=== PATIENT | female | born 1940 | race Caucasian/White ===

== ENCOUNTER 2017-04-22 11:41 | Emergency (ER) | payer MEDICARE, OTHER ==
[2017-04-22 12:00] VITALS: BP 157/75
[2017-04-22] MEDS ORDERED: Acetaminophen TAB* 325 MG PO ONE (12:33)
--- NOTE | 2017-04-22 12:35 | UC ---
Upper Extremity HPI - HPI Summary HPI Summary: 76 year old female with shoulder pain . Right shoulder and arm pain onset last night when boxer puppy pulled and twisted arm, now decreased ROM of upper arm. Pain with movement. No fall. no trauma. no numbness in arm. [ End ] - History of Current Complaint Chief Complaint: UCUpperExtremity Stated Complaint: RIGHT ARM/SHOULDER PAIN Time Seen by Provider: 04/22/17 12:13 Hx Obtained From: Patient ?: No Onset/Duration: Sudden Onset Severity Initially: Moderate Severity Currently: Moderate Location Of Pain: Is Diffuse Character: Stiffness Aggravating Factor(s): Movement Alleviating Factor(s): Nothing Associated Signs And Symptoms: Positive: Negative - Allergies/Home Medications Allergies/Adverse Reactions: Allergies Allergy/AdvReac Type Severity Reaction Status Date / Time Penicillins Allergy SEVERE Verified 04/22/17 12:00 BODY RASH Sulfa Drugs Allergy Nausea And Verified 04/22/17 12:00 Vomiting ENVIRONMENTAL/HAYFEVER Allergy Congestion, Uncoded 04/22/17 12:00 SNEEZING Home Medications: Home Medications Albuterol inh POWDER (NF) [Proair Respiclick] 2 puff IN QAM 04/22/17 [History Confirmed 04/22/17] PMH/Surg Hx/FS Hx/Imm Hx Previously Healthy: Yes - Surgical History Surgical History: Yes Surgery Procedure, Year, and Place: 1972 CYST REMOVED FROM RIGHT BREAST, [facility]. 1984 TOTAL HYSTERECTOMY, [facility]. 1987 POLYP REMOVED FROM COLON, [facility]. 1997 RIGHT EYE SURGERY, [place]. 1999 RIGHT KNEE TOTAL REPLACEMENT, [facility]. 2002 CATARACT EXTRACTION WITH IOL LENS IMPLANT RIGHT EYE, [facility]. 2004 TORN LEFT ROTATOR CUFF REPAIR AND PARTIAL REMOVAL OF COLLAR BONE, [facility] [place]. 2007 HIATAL HERNIA REPAIR, [facility] [place]. 2009 RIGHT FOOT SURGERY, [facility]. 06/2013 Left cataract surgery - Family History Known Family History: Positive: None - Social History Occupation: Retired Lives: With Family Alcohol Use: None Substance Use Type: None Smoking Status (MU): Never Smoked Tobacco - Immunization History Most Recent Influenza Vaccination: FEB 2013 Review of Systems Musculoskeletal: Arthralgia, Decreased ROM All Other Systems Reviewed And Are Negative: Yes Physical Exam Triage Information Reviewed: Yes Appearance: Well-Appearing, Well-Nourished, Pain Distress - mild Vital Signs: Initial Vital Signs Temp 98.1 F 04/22/17 11:47 Pulse 59 04/22/17 11:47 Resp 18 04/22/17 11:47 BP 157/75 04/22/17 11:47 Vital Signs Reviewed: Yes Respiratory Exam: Normal Cardiovascular Exam: Normal Musculoskeletal: Positive: ROM Limited @ - with flexion or extension of the righ shoulder joint. neck and c spine WNL and no sp tenderness. wrist and elbow exam normal . tenderness to palpation lateral shoulder Neurological Exam: Normal Diagnostics - Laboratory Diagnostic Studies Completed/Ordered: no fx. calcific tendonitis Upper Extremity Course/Dx - Course Course Of Treatment: ? rotator cuff tear -- sling and f/u ortho with dr pride - Differential Dx/Diagnosis Differential Diagnosis/HQI/PQRI: Contusion, Fracture (Closed), Strain, Sprain, Other - dislocation Provider Diagnoses: calcific tendonitis right arm Discharge - Discharge Plan Condition: Good Disposition: HOME Patient Education Materials: Calcific Tendinitis (ED) Referrals: Taiwo Pride MD [Medical Doctor] - 1 Day (Ortho referral ) Additional Instructions: Xray IMPRESSION: 1. SOFT TISSUE CALCIFICATIONS SUGGESTIVE OF A CALCIFIC TENDINOPATHY. 2. NO ACUTE OSSEOUS INJURY. IF SYMPTOMS PERSIST, RECOMMEND REPEAT IMAGING
--- NOTE | 2017-04-22 13:08 | RAD ---
HISTORY: Right shoulder pain COMPARISONS: None VIEWS: 4, Frontal internal rotation, external rotation, outlet, and axillary views of the right shoulder FINDINGS: BONE DENSITY: Normal. BONES: There is no displaced fracture. JOINTS: There is no arthropathy. ALIGNMENT: There is no dislocation. SOFT TISSUES: There is soft tissue calcification along the proximal right humerus. OTHER FINDINGS: None. IMPRESSION: 1. SOFT TISSUE CALCIFICATIONS SUGGESTIVE OF A CALCIFIC TENDINOPATHY. 2. NO ACUTE OSSEOUS INJURY. IF SYMPTOMS PERSIST, RECOMMEND REPEAT IMAGING
== END 2017-04-22 13:40 | disposition home or self-care (01) ==
LOC: UCCORT 11:41
DX: M65.221 Calcific tendinitis, right upper arm (principal); Z88.0 Allergy status to penicillin; Z88.2 Allergy status to sulfonamides
CPT/HCPCS: 99213; A9270-GY; G0463

== ENCOUNTER 2018-09-27 05:33 | Inpatient (IN) | payer MEDICARE, OTHER ==
--- NOTE | 2018-09-14 14:55 | HP ---
AMENDED REPORT NOW INCLUDES DESIGNATED COSIGNER SETUP HISTORY AND PHYSICAL: DATE OF ADMISSION/SURGERY: 09/27/18 DATE OF OFFICE VISIT: 09/14/18 SURGEON: Kartik Woods MD * (DICTATED BY CELSA CARTER) PROCEDURE: Left total knee replacement. CHIEF COMPLAINT: Left knee pain. HISTORY OF PRESENT ILLNESS: Margarita is a 77-year-old female presenting today for an H and P for her left total knee replacement on 09/27/18. She has had left knee pain for several months and has been having significant discomfort in the past few weeks. Her walking is less than 1 block. She has to use a cart at the grocery store for knee discomfort. She is able to use her steps, but with difficulty. She has to use a railing and goes up 1 step at a time. The left knee awakens her from sleep at night and when she gets into the car she has to lift her left pant leg up in order to get her left leg into the car because of knee discomfort. PAST MEDICAL HISTORY: Positive for asthma, seasonal allergies, hypertension, hyperlipidemia, osteoarthritis, colon cancer/colon polyps, and esophageal reflux. PAST SURGICAL HISTORY: She had a right inguinal hernia repair in 2017, right foot reconstruction in 2011, right knee replacement in 1999, rotator cuff repair in 2003, diaphragmatic hernia repair in 2006, right cataract removal in 2002, colon polypectomy in 1997, of the right breast in 1971, left cataract removal in 1997, total hysterectomy in 1985, and a right sinus removal in 2013. Hospitalizations were just for vaginal delivery. MEDICATIONS: Prior to visit, she is on: 1. Vitamin D 50,000 units once a week. 2. Nasonex 50 mcg 2 sprays in each nostril every day. 3. Diltiazem HCl ER 120 mg once daily. 4. Aspirin 81 mg once daily. 5. Advair Diskus 250/50 mcg 1 puff p.o. b.i.d. 6. Singulair 10 mg 1 p.o. daily. 7. Bisoprolol fumarate 5 mg 1 p.o. b.i.d. 8. Mometasone furoate 50 mcg 2 sprays in each nostril once a day. 9. ProAir HFA 108 mcg 2 puffs by mouth every 4 hours as needed. 10. Atorvastatin calcium 10 mg once a day. 11. Valsartan/hydrochlorothiazide 80/12.5 mg once a day. ALLERGIES: PENICILLIN, which results in a full body rash and SULFA ANTIBIOTICS , which results in nausea, vomiting. FAMILY HISTORY: Positive for mother had heart disease and was at 95. Father, history of heart disease. Brother was at 72 due to an unknown cancer. SOCIAL HISTORY: She is and lives with her . She is retired. She denies smoking or any tobacco use. Denies any recreational drug use and denies alcohol. Her daily caffeine is about 4 cups of regular coffee per day and she exercises sporadically. REVIEW OF SYSTEMS: General: She denies fevers, chills, fatigue. ENT: She denies headache, vision changes, or hearing loss. Cardiac: She denies chest pain, palpitations, NAVARRO, or history of an DE. Respiratory: She denies shortness of breath or cough. GI: She denies nausea, vomiting, diarrhea. Neuro: She denies numbness, tingling, or weakness. Heme: She denies any history of blood clots, DVT, PE. Also denies any anemia. She also denies a history of any reaction or allergy to metal implants. PHYSICAL EXAMINATION GENERAL: She is a 77-year-old female, in no acute distress. VITAL SIGNS: Height 63 inches, weight 153 pounds. Pulse is 78, BP is 142/78, respirations 14, temperature 97.9. Pain level 0 at rest. BMI is 27.1. LUNGS: Clear to auscultation bilaterally. HEART: She has normal rate and rhythm. No murmurs, rubs, or gallops. MUSCULOSKELETAL: Left lower extremity: She has marked anterior left knee tenderness to palpation. Her medial and lateral joint lines are also slightly tenderness to palpation. Her dorsalis pedis pulse and posterior tibialis pulses are brisk and 2+. She has decreased range of motion with 50 degrees of flexion and is unable to fully extend due to pain. The MCL and LCL are stable. She is able to heel raise and toe raise, but it increases her left knee pain. Her lower extremity skin is intact without redness or fluctuance. NEURO: She denies any numbness or tingling and she is A and O x3. DIAGNOSTIC STUDIES: Her left knee radiograph shows severe patellofemoral arthritis. IMPRESSION AND PLAN: She has left knee severe patellar arthritis and the patient is scheduled to undergo a left total knee replacement on 09/27/18. She will return to the office 10 to 14 days postop for followup and suture removal. Prescription for Percocet was prescribed to the patient's pharmacy for postop pain management. She will also be placed on full-dose aspirin and she is also going to her PCP tomorrow for general workup and is going to obtain an EKG. CELSA CARTER [id number]/[facility] #: [id number] GARY
[~2018-09-27 05:33] MED LIST: Buffered Lidocaine 1% SYRIN* 1 ML/SYRINGE INTRADERM ONE; Tranexamic Acid 1,000 MG in NS 0.9% 50 ML* (outpatient use) IV SCH
--- OUTSIDE RECORDS SUMMARY | 2018-09-27 05:39 | XMS REPORT | Continuity of Care Document ---
:1940 External Reference #:[id number] Author Name Gina Olivas Care Team Providers Name Role Phone Dimitri Raman MD Primary Care Physician Unavailable Payers Date Identification Numbers Payment Provider Subscriber Policy Number: [id number] Medicare Margarita Ewing Group Name: Medicare [address] PayID: [id number] [place] [address] Effective: 2014 Policy Number: Lifetime Benefit James Ewing [id number] Solution Group Name: [facility] [address] PayID: [facility] AMALIA Pérez [id number] Effective: 2002 Policy Number: [id number] Medicare Margarita Ewing Expires: 2018 Group Name: Medicare [address] PayID: [id number] [place] [address] Advance Directives Description No Information Available Problems Active Problems Provider Date Musculoskeletal disorder of the neck Dimitri Armas M.D. 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 Hyperlipidemia Onset: 03/20/2011 Family History Date Family Member(s) Observation Comments General Heart Disease General Hypertension General Cancer Father Heart Disease Mother Heart Disease Mother Hypertension First Brother Cancer Social History Type Date Description Comments Sex Unknown Marital Status Lives With Spouse Occupation Retired Tobacco Use Start: Unknown Never Smoked Cigarettes Tobacco Use Start: Unknown Never Smoked Cigars Tobacco Use Start: Unknown Never Smoked A Pipe Smokeless Tobacco Never Used Smokeless Tobacco ETOH Use Never used alcohol Tobacco Use Reviewed: 10/13/16 Patient has never smoked Recreational Drug Use Never Used Drugs Smoking Status Reviewed: 09/16/18 Patient has never smoked Exercise Type/Frequency Exercises sporadically Allergies, Adverse Reactions, Alerts Active Allergies Reaction Severity Comments Date Penicillin rash 01/23/2011 Medications Active Medications SIG Qnty Indications Ordering Date Provider Vitamin D 1 weekly 12caps E55.9 Dimitri 05/04/2017 (Ergocalciferol) MD Lamine 01951Pyyg Capsules Nasonex 2 spray each 51units Dimitri 11/04/2015 50mcg/Act nostril intranasal MD Lamine Suspension every day Diltiazem HCL ER 1 every day 90caps I10 Dimitri 05/08/2014 MD Lamine 120mg Caps ER 24HR Aspirin 1 qd Dimitri 06/18/2011 81mg Tablets MD CLARIBEL Raman Adv Diskus 1 puff po bid 1units Unknown 250-50mcg/Dose Aerosol Singulair 1 po qd 90tabs Unknown 10mg Tablets Bisoprolol Fumarate 1 po bid 60tabs Unknown 5mg Tablets Mometasone Furoate Rinard Two Sprays Unknown In Each Nostril 50mcg/Act Suspension Once Daily Proair HFA 2 puffs by mouth Unknown every 4 hours as 108(90Base) mcg/Act needed Aerosol Atorvastatin Calcium Take One Tablet By Unknown Mouth Every Day 10mg Tablets Valsartan-Hydrochlor Take One Tablet By Unknown othiazide Mouth Every Day 80-12.5mg Tablets History Medications Zithromax day number one 6tabs J06.9 [place] 03/04/2018 - 250mg two qd,thendays MD Lamine 04/20/2018 Tablets two thru five one pill every day Doxycycline Hyclate 1 by mouth twice 20caps A69.20 Dimitri 01/22/2017 - a day MD Lamine 04/15/2017 100mg Capsules Doxycycline Hyclate 1 by mouth twice 20caps A69.20 Dimitri 08/14/2016 - a day MD Lamine 10/13/2016 100mg Capsules Naprosyn one twice a day 60tabs M54.32 Dimitri 12/11/2015 - 500mg with food MD Lamine 03/13/2016 Tablets Prednisone day 1and day 2 9tabs R49.8 Dimitri 09/06/2015 - 20mg two tablets MD Lamine 03/13/2016 Tablets qd,then day3,4,5 one qd,the one half tabletday 6,7,8,9 [facility] Omeprazole 1 by mouth twice 180tabs R49.8 Dimitri 09/06/2015 - 20mg a day MD Lamine 09/06/2015 Tablets Budevanonide 2 puffs each 25.8units J30.1 Dimitri 06/25/2015 - nare q am MD Lamine 11/04/2015 32mcg/Act Suspension Azithromycin 2 now and 1 6tabs 465.9 [place] 04/04/2014 - 250mg daily x 4 days MD Lamine 04/11/2014 Tablets Albuterol Sulfate 1 application 25units J45.909 Dimitri 06/07/2013 - q4h prn MD Lamine 03/13/2016 (2.5mg/3ML) 0.083% Nebulizer Lipitor 1 by mouth every 90tabs E78.5 Dimitri 08/18/2012 - 10mg day MD Lamine 03/08/2015 Tablets Vitb12 1 qd [place] 01/23/2011 - 500mcg Licha Armas 04/20/2017 Aspir-81 1 po qd 100tabs Unknown - 81mg 04/19/2017 Tablets Furosemide po qam 30tabs Unknown - 40mg 04/19/2017 Tablets Diltiazem CD 1 qd 90caps 401.9 [place] - 120mg MD Lamine 05/08/2014 Caps ER 24HR Albuterol Sulfate 1 prn 493.90 Dimitri - MD Lamine 12/25/2011 (2.5mg/3ML) 0.083% Nebulizer Fluticasone 2 puffs each 3units J30.1 Dimitri - Propionate nare every in MD Lamine 06/25/2015 the morning 50mcg/Act Suspension Meclizine HCL Unknown - 25mg 06/18/2011 Tablets Triamcinolone Dimitri Ghosh, - Acetonide 12/25/2011 0.5% Ointment Clotrimazole/Betame Dimitri - erica Raman MD 06/18/2011 Dipropionate 1-0.05% Cream Fluzone High-Dose Adm 0.5ML Im Utd Unknown - 03/13/2016 0.5ml Guerda Medications Administered in Office Medication SIG Qnty Indications Ordering Provider Date Depomedrol 40MG Kartik Woods M.D. 08/22/2018 Injection Celestone 3 mg and 3mg Taiwo Pride MD 04/23/2017 Injection Inj, Regadenoson, 0.1 MG Mallorie Duckworth M.D. 08/11/2012 Injection Technetium TC 99M Tetrofosmin, Mallorie Duckworth M.D. 08/11/2012 Per Unit Dose Up To 40 Millicuries Injection Allergy Injection - Single Dimitri Raman MD 10/21/1992 Injection Allergy Injection - Single Dimitri Raman MD 09/23/1992 Injection Allergy Injection - Single Dimitri Raman MD 09/02/1992 Injection Allergy Injection - Single Unknown 08/12/1992 Injection Allergy Injection - Single Unknown 07/22/1992 Injection Allergy Injection - Single Dimitri Raman MD 07/01/1992 Injection Immunizations CPT Code Status Date Vaccine Lot # [id number] Given 10/13/2016 Pneumococcal Conjugate Vaccine 13 Valent For Intramuscular Use 89549 Given 02/20/2016 Fluzone High Dose 41227 Given 02/15/2015 Fluzone High Dose 37689 Given 02/07/2014 Influenza Virus 3Yrs & Over 80694 Given 06/07/2013 Zoster (Zostavax) 99286 Given 02/08/2013 Influenza Virus 3Yrs & Over 57852 Given 08/18/2012 Pneumonia Vaccine 01908 Given 08/18/2012 Tdap - Tetanus/Diptheria/Acellular Pertussis 58325 Given 01/28/2012 Influenza Virus 3Yrs & Over 49884 Given 03/02/2008 Influenza Virus 3Yrs & Over 53698 Given 06/10/2006 Pneumonia Vaccine 73216 Given 03/11/2006 Influenza Virus 3Yrs & Over 76468 Given 04/02/2005 Pneumonia Vaccine 34528 Given 02/13/2005 Tetanus And Diptheria (Td) For Adult Use Preservative Free 48096 Given 12/02/1999 Tetanus And Diptheria (Td) For Adult Use Preservative Free 28261 Given 04/14/1996 Flu Vaccine Vital Signs Date Vital Result Comment 09/16/2018 8:27am Height 63 inches 5'3" Weight 154.00 lb Heart Rate 63 /min BP Systolic 114 mmHg BP Diastolic 70 mmHg Respiratory Rate 20 /min Pain Level 0 O2 % BldC Oximetry 97 % BMI (Body Mass Index) 27.3 kg/m2 09/14/2018 9:08am Height 63 inches 5'3" Weight 153.00 lb Heart Rate 78 /min BP Systolic 142 mmHg BP Diastolic 78 mmHg Respiratory Rate 14 /min Body Temperature 97.9 F Pain Level 0 BMI (Body Mass Index) 27.1 kg/m2 08/22/2018 8:26am Height 63 inches 5'3" Weight 150.00 lb Heart Rate 67 /min BP Systolic 148 mmHg BP Diastolic 96 mmHg Body Temperature 96.4 F BMI (Body Mass Index) 26.6 kg/m2 04/20/2018 10:51am Weight 150.00 lb BP Systolic 120 mmHg BP Diastolic 82 mmHg 03/04/2018 9:12am Weight 151.00 lb Heart Rate 69 /min BP Systolic 140 mmHg BP Diastolic 80 mmHg 10/28/2017 3:13pm Weight 153.00 lb BP Systolic 120 mmHg BP Diastolic 62 mmHg 10/14/2017 9:07am Height 60.25 inches Weight 152.00 lb Heart Rate 60 /min BP Systolic 150 mmHg BP Diastolic 90 mmHg Respiratory Rate 20 /min BMI (Body Mass Index) 29.4 kg/m2 08/11/2017 8:43am Height 60.75 inches Weight 157.50 lb BP Systolic 100 mmHg BP Diastolic 68 mmHg BMI (Body Mass Index) 30.0 kg/m2 05/04/2017 1:48pm Weight 160.00 lb BP Systolic 120 mmHg BP Diastolic 68 mmHg 04/23/2017 9:08am Height 60.75 inches Weight 159.00 lb BP Systolic 142 mmHg BP Diastolic 82 mmHg BMI (Body Mass Index) 30.3 kg/m2 04/23/2017 11:26am Height 62 inches 5'2" Weight 159.00 lb Heart Rate 60 /min BP Systolic Sitting 150 mmHg BP Diastolic Sitting 86 mmHg Respiratory Rate 18 /min Pain Level 0 BMI (Body Mass Index) 29.1 kg/m2 04/15/2017 8:12am Weight 161.50 lb BP Systolic 142 mmHg BP Diastolic 88 mmHg 10/13/2016 8:08am Height 60.75 inches Weight 168.00 lb Heart Rate 64 /min BP Systolic 122 mmHg BP Diastolic 66 mmHg Respiratory Rate 16 /min BMI (Body Mass Index) 32.0 kg/m2 08/14/2016 12:15pm BP Systolic 130 mmHg BP Diastolic 88 mmHg 06/16/2016 8:08am Weight 178.00 lb BP Systolic 128 mmHg BP Diastolic 78 mmHg 03/13/2016 8:09am Weight 178.50 lb BP Systolic 134 mmHg BP Diastolic 80 mmHg 01/02/2016 8:04am Weight 174.50 lb BP Systolic 144 mmHg BP Diastolic 78 mmHg 12/11/2015 8:08am Weight 175.00 lb BP Systolic 144 mmHg BP Diastolic 84 mmHg 09/12/2015 9:13am Height 60.75 inches Weight 177.00 lb Heart Rate 56 /min BP Systolic 126 mmHg BP Diastolic 86 mmHg Respiratory Rate 16 /min Body Temperature 97.7 F BMI (Body Mass Index) 33.7 kg/m2 09/06/2015 9:56am Weight 175.00 lb BP Systolic 128 mmHg BP Diastolic 80 mmHg 09/06/2015 11:17am Heart Rate 70 /min Body Temperature 98.8 F 06/25/2015 8:19am Weight 177.00 lb BP Systolic 130 mmHg BP Diastolic 74 mmHg 03/14/2015 8:12am Weight 177.50 lb BP Systolic 150 mmHg BP Diastolic 100 mmHg 03/08/2015 8:09am Weight 176.00 lb BP Systolic 126 mmHg BP Diastolic 74 mmHg 09/06/2014 9:15am Height 60.75 inches Weight 184.50 lb Heart Rate 72 /min BP Systolic 136 mmHg BP Diastolic 72 mmHg Respiratory Rate 16 /min Body Temperature 98.2 F BMI (Body Mass Index) 35.1 kg/m2 07/13/2014 8:02am Weight 189.00 lb BP Systolic 140 mmHg BP Diastolic 80 mmHg 04/11/2014 10:19am Weight 191.00 lb BP Systolic 132 mmHg BP Diastolic 84 mmHg 04/04/2014 10:05am Weight 188.50 lb BP Systolic 124 mmHg BP Diastolic 82 mmHg Body Temperature 98.5 F 02/26/2014 9:55am Weight 188.50 lb BP Systolic 110 mmHg BP Diastolic 66 mmHg 11/24/2013 12:07pm Height 61 inches Weight 185.00 lb Heart Rate 56 /min BP Systolic 136 mmHg BP Diastolic 72 mmHg Respiratory Rate 16 /min Body Temperature 98.5 F BMI (Body Mass Index) 35.0 kg/m2 09/27/2013 8:24am Weight 192.50 lb BP Systolic 134 mmHg BP Diastolic 72 mmHg 08/10/2013 2:57pm Height 61 inches Weight 186.00 lb Heart Rate 64 /min BP Systolic 120 mmHg BP Diastolic 80 mmHg Respiratory Rate 14 /min Body Temperature 98.8 F BMI (Body Mass Index) 35.1 kg/m2 06/07/2013 1:03pm Height 60.75 inches Weight 186.00 lb Heart Rate 64 /min BP Systolic 98 mmHg BP Diastolic 70 mmHg Respiratory Rate 16 /min Body Temperature 98.1 F BMI (Body Mass Index) 35.4 kg/m2 11/25/2012 8:15am Height 61 inches Weight 190.00 lb BP Systolic 136 mmHg BP Diastolic 88 mmHg BMI (Body Mass Index) 35.9 kg/m2 08/18/2012 8:13am Weight 202.00 lb BP Systolic 138 mmHg BP Diastolic 90 mmHg 07/28/2012 9:21am Height 60.50 inches Weight 203.00 lb BMI (Body Mass Index) 39.0 kg/m2 02/25/2012 9:52am BP Systolic 130 mmHg BP Diastolic 72 mmHg 12/25/2011 8:24am Height 60.50 inches Weight 192.50 lb BP Systolic 136 mmHg BP Diastolic 86 mmHg BMI (Body Mass Index) 37.0 kg/m2 06/18/2011 8:34am Height 60.50 inches Weight 192.50 lb Heart Rate 60 /min BP Systolic 140 mmHg BP Diastolic 86 mmHg Respiratory Rate 14 /min Body Temperature 97.6 F BMI (Body Mass Index) 37.0 kg/m2 01/23/2011 9:24am Heart Rate 84 /min BP Systolic Sitting 128 mmHg BP Diastolic Sitting 88 mmHg Results Test Date Facility Test Result H/L Range Note CBC Auto Diff 09/14/2018 White Blood 5.8 10^3/uL N 3.5-10.[address] [place] [address] [phone] Red Blood Count 4.12 10^6/uL N 3.70-4.87 Hemoglobin 12.6 g/dL N 12.0-16.0 Hematocrit 39 % N 35-47 Mean Corpuscular Volume 94 fL N 80-97 Mean Corpuscular Hemoglobin 31 pg N 27-31 Mean Corpuscular HGB Conc 33 g/dL N 31-36 Red Cell Distribution Width 15 % N 10.5-15 Platelet Count 192 10^3/uL N 150-450 Mean Platelet Volume 8.0 fL N 7.4-10.4 Abs Neutrophils 3.4 10^3/uL N 1.5-7.7 Abs Lymphocytes 1.4 10^3/uL N 1.0-4.8 Abs Monocytes 0.4 10^3/uL N 0-0.8 Abs Eosinophils 0.5 10^3/uL N 0-0.6 Abs Basophils 0 10^3/uL N 0-0.2 Abs Nucleated RBC 0 10^3/uL Granulocyte % 58.5 % Lymphocyte % 24.1 % Monocyte % 7.4 % Eosinophil % 9.3 % Basophil % 0.7 % Nucleated Red Blood Cells % 0 Inr/Protime 09/14/2018 Inr 0.97 N 0.82-1.[address] [place] [address] [phone] Laboratory test 09/14/2018 Partial 30.7 seconds N 26.0-36.[address] [place] [address] PTT [phone] Comp Metabolic 09/14/2018 Sodium 140 mmol/L N 135- [address] [place] [address] [phone] Potassium 4.0 mmol/L N 3.5-5.0 Chloride 104 mmol/L N 101-111 Co2 Carbon Dioxide 28 mmol/L N 22-32 Anion Gap 8 mmol/L N 2-11 Glucose 98 mg/dL N 70-100 Blood Urea Nitrogen 27 mg/dL High 6-24 Creatinine 0.82 mg/dL N 0.51-0.95 BUN/Creatinine Ratio 32.9 High 8-20 Calcium 9.4 mg/dL N 8.6-10.3 Total Protein 6.7 g/dL N 6.4-8.9 Albumin 4.0 g/dL N 3.2-5.2 Globulin 2.7 g/dL N 2-4 Albumin/Globulin Ratio 1.5 N 1-3 Total Bilirubin 0.50 mg/dL N 0.2-1.0 Alkaline Phosphatase 56 U/L N 34-104 Alt 8 U/L N 7-52 Ast 15 U/L N 13-39 Egfr Non- 67.4 >60 Egfr 81.6 >60 4 Type & Screen 09/14/2018 Patient Blood Type O Positive [address] [place] [address] [phone] Antibody Screen NEGATIVE CBC 10/23/2017 N2N/CCD Import Hematocrit 40.5 % 36-46.1 5 Hemoglobin 12.9 gm/dL 11.6-15.8 Mean Cell Volume 96.7 fl 80.9-99 Mean Corpuscular HGB 30.8 pg 25.9-32.7 Mean Corpuscular HGB Conc 31.9 g/dL 30.8-34.3 Mean Platelet Volume 10.0 fL 8.9-12.4 Platelet Count 182 K/uL 155-360 Red Blood Count 4.19 M/uL 3.9-5.4 Red Cell Distri Width %CV 14.7 % High 11.7-14.4 White Blood Count 6.5 K/uL 3.1-10.7 Comprehensive Metabolic Panel 10/21/2017 N2N/CCD Import Alb/Glob 0.9 ratio 6 Albumin 3.4 g/dL 3.4-5 Alkaline Phosphatase 48 U/L 45-117 Anion Gap 8 mEq/L 8-16 BUN 20 mg/dL High 7-18 BUN/Creat 25.0 ratio Bilirubin,Total 0.5 mg/dL 0.2-1 Calcium 8.8 mg/dL 8.5-10.1 Carbon Dioxide 25 mmol/L 21-32 Chloride 108 mmol/L High 98-107 Creatinine 0.8 mg/dL 0.6-1.3 Globulin 3.7 g/dL 1.9-4.3 Glom Filtration Rate, Estimate >60 mL/min Glucose 80 mg/dL 74-106 If >60 mL/min 7 Potassium 4.0 mmol/L 3.5-5.1 SGPT/Alt 16 U/L 12-78 Sgot/Ast 23 U/L 15-37 Sodium 141 mmol/L 136-145 Total Protein 7.1 g/dL 6.4-8.2 LDL Cholesterol Profile 10/21/2017 N2N/[facility] Import Cholesterol 157 mg/dL 8 HDL Cholesterol 92 mg/dL 9 LDL-Cholesterol 57 mg/dL 10 Triglycerides 42 mg/dL 11 Microalbumin,Random 10/21/2017 N2N/[facility] Import Microalbumin,Urine 8.1 mg/L Urine Vitamin B12 And Folate 04/27/2017 N2N/[facility] Import Folic Acid 8.7 ng/mL 3.1-1 12 Serum 7.5 Vitamin B12 345 pg/mL 193-986 Laboratory test 04/27/2017 N2N/CCD Import Glycohemoglobin (A1c) 6.0 % 4.2-6.3 13 finding Thyroid Stim Hormone 3.48 uIU/mL 0.3-4.2 Vitamin D,25-Hydroxy 26.5 ng/mL Low 30-100 14 eAG 126 mg/dL CBC No Diff 04/27/2017 N2N/[facility] Import Hematocrit 40.9 % 36-46.1 Hemoglobin 13.1 gm/dL 11.6-15.8 Mean Cell Volume 96.5 fl 80.9-99 Mean Corpuscular HGB 30.9 pg 25.9-32.7 Mean Corpuscular HGB Conc 32.0 g/dL 30.8-34.3 Mean Platelet Volume 10.0 fL 8.9-12.4 Platelet Count 212 K/uL 155-360 Red Blood Count 4.24 M/uL 3.9-5.4 Red Cell Distri Width %CV 14.9 % High 11.7-14.4 White Blood Count 6.4 K/uL 3.1-10.7 CMP 04/27/2017 N2N/CCD Import Alb/Glob 0.9 ratio Albumin 3.3 g/dL Low 3.4-5 Alkaline Phosphatase 50 U/L 45-117 Anion Gap 6 mEq/L Low 8-16 BUN 30 mg/dL High 7-18 BUN/Creat 33.3 ratio Bilirubin,Total 0.5 mg/dL 0.2-1 Calcium 9.0 mg/dL 8.5-10.1 Carbon Dioxide 30 mmol/L 21-32 Chloride 106 mmol/L 98-107 Creatinine 0.9 mg/dL 0.6-1.3 Globulin 3.7 g/dL 1.9-4.3 Glom Filtration Rate, Estimate >60 mL/min Glucose 81 mg/dL 74-106 If >60 mL/min 15 Potassium 4.6 mmol/L 3.5-5.1 SGPT/Alt 24 U/L 12-78 Sgot/Ast 21 U/L 15-37 Sodium 142 mmol/L 136-145 Total Protein 7.0 g/dL 6.4-8.2 Microalbumin,Random Urine 04/27/2017 N2N/CCD Import Microalbumin,Urine 8.1 mg/L Lipid Panel 04/27/2017 N2N/CCD Import Cholesterol 177 mg/dL 16 HDL Cholesterol 100 mg/dL 17 LDL-Cholesterol 56 mg/dL 18 Triglycerides 103 mg/dL 19 Laboratory test 10/07/2016 N2N/CCD Import Lyme IgM 2.24 index High 0- 0.79 20, 21 finding (Reflex Western Blot) Basic Metabolic 10/07/2016 N2N/CCD Import Anion Gap 5 mEq/L Low 8-16 Panel BUN 28 mg/dL High 7-18 BUN/Creat 31.1 ratio Calcium 9.1 mg/dL 8.5-10.1 Carbon Dioxide 30 mmol/L 21-32 Chloride 107 mmol/L 98-107 Creatinine 0.9 mg/dL 0.6-1.3 Glom Filtration Rate, Estimate >60 mL/min Glucose 93 mg/dL 74-106 If >60 mL/min 22 Potassium 4.0 mmol/L 3.5-5.1 Sodium 142 mmol/L 136-145 LDL Cholesterol Profile 10/07/2016 N2N/CCD Import Cholesterol 169 mg/dL 23 HDL Cholesterol 92 mg/dL 24 LDL-Cholesterol 67 mg/dL 25 Triglycerides 50 mg/dL 26 Lyme Igg & Igm By Western 10/07/2016 N2N/CCD Import Lyme AB Igg By Western . Blot Blot Lyme AB Igm By Western Blot . Lyme Igg WB Interpretation Negative 27 Lyme Igm WB Interpretation Positive Abnormal 28 P18 AB Absent P23 AB Present Abnormal P23 AB Absent P28 AB Absent P30 AB Absent P39 AB Absent P39 AB Absent P41 AB Present Abnormal P41 AB Absent P45 AB Absent P58 AB Absent P66 AB Absent P93 AB Absent Microalbumin,Random 10/07/2016 N2N/CCD Import Microalbumin,Urine < 5.0 Urine mg/L Laboratory test 08/17/2016 N2N/CCD Import Lyme IgM (Reflex 2.52 High 0-0 29, finding Western Blot) index .79 30 Lyme Igg & Igm By 08/17/2016 N2N/[facility] Import Lyme AB Igg By . Western Blot Western Blot Lyme AB Igm By Western Blot . Lyme Igg WB Interpretation Negative 31 Lyme Igm WB Interpretation Negative 32 P18 AB Absent P23 AB Absent P23 AB Present Abnormal P28 AB Absent P30 AB Absent P39 AB Absent P39 AB Absent P41 AB Absent P41 AB Absent P45 AB Absent P58 AB Absent P66 AB Absent P93 AB Absent Laboratory test 12/04/2015 N2N/CCD Import Microalbumin,Random Urine 9.7 mg/ L finding CBC 12/04/2015 N2N/[facility] Import Hematocrit 40.6 % 36-46. 1 Hemoglobin 13.0 gm/dL 11.6-15.8 Mean Cell Volume 95.1 fl 80.9-99 Mean Corpuscular HGB 30.4 pg 25.9-32.7 Mean Corpuscular HGB Conc 32.0 g/dL 30.8-34.3 Mean Platelet Volume 9.9 fL 8.9-12.4 Platelet Count 214 K/uL 155-360 Red Blood Count 4.27 M/uL 3.9-5.4 Red Cell Distri Width %CV 14.6 % High 11.7-14.4 White Blood Count 5.2 K/uL 3.1-10.7 Comprehensive Metabolic Panel 12/04/2015 N2N/[facility] Import Alb/Glob 1.0 ratio Albumin 3.7 g/dL 3.4-5 Alkaline Phosphatase 53 U/L 45-117 Anion Gap 6 mEq/L Low 8-16 BUN 30 mg/dL High 7-18 BUN/Creat 33.3 ratio Bilirubin,Total 0.7 mg/dL 0.2-1 Calcium 9.2 mg/dL 8.5-10.1 Carbon Dioxide 29 mmol/L 21-32 Chloride 106 mmol/L 98-107 Creatinine 0.9 mg/dL 0.6-1.3 Globulin 3.7 g/dL 1.9-4.3 Glom Filtration Rate, Estimate >60 mL/min Glucose 96 mg/dL 74-106 If >60 mL/min 33 Potassium 4.0 mmol/L 3.5-5.1 SGPT/Alt 17 U/L 12-78 Sgot/Ast 20 U/L 15-37 Sodium 141 mmol/L 136-145 Total Protein 7.4 g/dL 6.4-8.2 LDL Cholesterol Profile 12/04/2015 N2N/CCD Import Cholesterol 174 mg/dL 34 HDL Cholesterol 88 mg/dL 35 LDL-Cholesterol 76 mg/dL 36 Triglycerides 51 mg/dL 37 LDL Cholesterol Profile 09/05/2015 N2N/CCD Import Cholesterol 184 mg/dL 38 HDL Cholesterol 100 mg/dL 39 LDL-Cholesterol 73 mg/dL 40 Triglycerides 54 mg/dL 41 Basic Metabolic Panel 05/29/2015 N2N/CCD Import Anion Gap 7 mEq/L Low 8- 16 BUN 27 mg/dL High 7-18 BUN/Creat 33.7 ratio Calcium 8.7 mg/dL 8.5-10.1 Carbon Dioxide 28 mmol/L 21-32 Chloride 106 mmol/L 98-107 Creatinine 0.8 mg/dL 0.6-1.3 Glom Filtration Rate, Estimate >60 mL/min Glucose 88 mg/dL 74-106 If >60 mL/min 42 Potassium 3.5 mmol/L 3.5-5.1 Sodium 141 mmol/L 136-145 LDL Cholesterol Profile 05/29/2015 N2N/CCD Import Cholesterol 228 mg/dL High 43 HDL Cholesterol 89 mg/dL 44 LDL-Cholesterol 126 mg/dL 45 Triglycerides 64 mg/dL 46 Laboratory test 03/01/2015 N2N/CCD Import Microalbumin,Random Urine 298.0 mg/L finding CBC 03/01/2015 N2N/CCD Import Hematocrit 37.7 % 36-46 .1 Hemoglobin 12.4 gm/dL 11.6-15.8 Mean Cell Volume 96.7 fl 80.9-99 Mean Corpuscular HGB 31.8 pg 25.9-32.7 Mean Corpuscular HGB Conc 32.9 g/dL 30.8-34.3 Mean Platelet Volume 10.2 fL 8.9-12.4 Platelet Count 187 K/uL 155-360 Red Blood Count 3.90 M/uL 3.9-5.4 Red Cell Distri Width %CV 14.9 % High 11.7-14.4 White Blood Count 8.1 K/uL 3.1-10.7 Comprehensive Metabolic Panel 03/01/2015 N2N/CCD Import Alb/Glob 1.0 ratio Albumin 3.4 g/dL 3.4-5 Alkaline Phosphatase 66 U/L 45-117 Anion Gap 4 mEq/L Low 8-16 BUN 15 mg/dL 7-18 BUN/Creat 15.0 ratio Bilirubin,Total 0.7 mg/dL 0.2-1 Calcium 8.9 mg/dL 8.5-10.1 Carbon Dioxide 32 mmol/L 21-32 Chloride 107 mmol/L 98-107 Creatinine 1.0 mg/dL 0.6-1.3 Globulin 3.4 g/dL 1.9-4.3 Glom Filtration Rate, Estimate 57 mL/min Glucose 96 mg/dL 74-106 If >60 mL/min 47 Potassium 3.7 mmol/L 3.5-5.1 SGPT/Alt 15 U/L 12-78 Sgot/Ast 15 U/L 15-37 Sodium 143 mmol/L 136-145 Total Protein 6.8 g/dL 6.4-8.2 LDL Cholesterol Profile 03/01/2015 N2N/CCD Import Cholesterol 158 mg/dL 48 HDL Cholesterol 88 mg/dL 49 LDL-Cholesterol 57 mg/dL 50 Triglycerides 65 mg/dL 51 Comprehensive Metabolic Panel 05/25/2014 N2N/CCD Import Alb/Glob 1.0 ratio Albumin 3.5 g/dL 3.4-5 Alkaline Phosphatase 68 U/L 45-117 Anion Gap 8 mEq/L 8-16 BUN 27 mg/dL High 7-18 BUN/Creat 27.0 ratio Bilirubin,Total 0.6 mg/dL 0.2-1 Calcium 8.9 mg/dL 8.5-10.1 Carbon Dioxide 30 mmol/L 21-32 Chloride 108 mmol/L High 98-107 Creatinine 1.0 mg/dL 0.6-1.3 Globulin 3.6 g/dL 1.9-4.3 Glom Filtration Rate, Estimate 58 mL/min Glucose 83 mg/dL 74-106 If >60 mL/min 52 Potassium 3.9 mmol/L 3.5-5.1 SGPT/Alt 14 U/L 12-78 Sgot/Ast 16 U/L 15-37 Sodium 142 mmol/L 136-145 Total Protein 7.1 g/dL 6.4-8.2 LDL Cholesterol Profile 05/25/2014 N2N/CCD Import Cholesterol 171 mg/dL 53 HDL Cholesterol 101 mg/dL 54 LDL-Cholesterol 58 mg/dL 55 Triglycerides 59 mg/dL 56 Imaging finding 2013 N2N/CCD Import Chest Xray PA <pending> and Lateral Laboratory test 2013 N2N/CCD Import Thyroid Stim 4.55 uIU/mL 0.49- 4.6 finding Hormone 7 CBS W/Automated 2013 N2N/CCD Import Bas% 0.4 % 0-1.1 Diff Baso # 0.02 K/uL 0-0.1 Eo% 16.5 % High 0-6.6 Eos # 0.83 K/uL High 0-0.5 Hematocrit 38.5 % 36-46.1 Hemoglobin 12.7 gm/dL 11.6-15.8 Lymph # 1.51 K/uL 0.8-3.4 Lymph % 30.0 % 17-46.1 Mean Cell Volume 94.1 fl 80.9-99 Mean Corpuscular HGB 31.1 pg 25.9-32.7 Mean Corpuscular HGB Conc 33.0 g/dL 30.8-34.3 Mean Platelet Volume 9.6 fL 8.9-12.4 Allen # 0.44 K/uL 0.3-0.9 Allen % 8.7 % 4.3-13.2 Neut# 2.24 K/uL 1-7 Neut% 44.4 % 40.4-72.8 Platelet Count 189 K/uL 155-360 Red Blood Count 4.09 M/uL 3.9-5.4 Red Cell Distri Width %CV 13.8 % 11.7-14.4 Red Cell Distri Width SD 46.4 fl 3-47 White Blood Count 5.0 K/uL 3.1-10.7 LDL Cholesterol Profile 2013 N2N/CCD Import Cholesterol 154 mg/dL 120-200 HDL Cholesterol 86 mg/dL High 29-83 LDL-Cholesterol 58 mg/dL Low 62-185 Triglycerides 49 mg/dL 16-231 Comprehensive Metabolic Panel 2013 N2N/CCD Import Alb/Glob 0.8 ratio Albumin 3.2 g/dL Low 3.5-5 Alkaline Phosphatase 64 U/L 50-136 Anion Gap 10 mEq/L 8-16 BUN 20 mg/dL 5-23 BUN/Creat 22.2 ratio Bilirubin,Total 0.5 mg/dL 0.2-1.2 Calcium 8.9 mg/dL 8.5-10.1 Carbon Dioxide 28 mEq/L 18-29 Chloride 108 mmol/L High 98-107 Creatinine 0.9 mg/dL 0.5-1.4 Globulin 3.9 g/dL 1.9-4.3 Glom Filtration Rate, Estimate >60 mL/min Glucose 82 mg/dL 76-115 If >60 mL/min 57 Potassium 4.1 mmol/L 3.5-5.1 SGPT/Alt 14 U/L Low 30-65 Sgot/Ast 16 U/L 16-40 Sodium 142 mmol/L 136-145 Total Protein 7.1 g/dL 6.3-8 Laboratory test 09/20/2013 N2N/CCD Import Microalbumin,Random 20.8 High 0 -18.5 finding Urine mg/L LDL Cholesterol 09/20/2013 N2N/CCD Import Cholesterol 181 120-200 Profile mg/dL HDL Cholesterol 102 mg/dL High 29-83 LDL-Cholesterol 70 mg/dL 62-185 Triglycerides 46 mg/dL 16-231 Comprehensive Metabolic Panel 09/20/2013 N2N/CCD Import Alb/Glob 0.9 ratio Albumin 3.6 g/dL 3.5-5 Alkaline Phosphatase 71 U/L 50-136 Anion Gap 7 mEq/L Low 8-16 BUN 20 mg/dL 5-23 BUN/Creat 22.2 ratio Bilirubin,Total 0.6 mg/dL 0.2-1.2 Calcium 9.2 mg/dL 8.5-10.1 Carbon Dioxide 31 mEq/L High 18-29 Chloride 107 mmol/L 98-107 Creatinine 0.9 mg/dL 0.5-1.4 Globulin 4.0 g/dL 1.9-4.3 Glom Filtration Rate, Estimate >60 mL/min Glucose 92 mg/dL 76-115 If >60 mL/min 58 Potassium 4.2 mmol/L 3.5-5.1 SGPT/Alt 13 U/L Low 30-65 Sgot/Ast 14 U/L Low 16-40 Sodium 141 mmol/L 136-145 Total Protein 7.6 g/dL 6.3-8 Imaging finding 09/14/2013 N2N/CCD Import bilateral <pending> screening mammogram LDL Cholesterol 06/15/2013 N2N/[facility] Import Cholesterol 160 mg/dL 120-200 Profile HDL Cholesterol 91 mg/dL High 29-83 LDL-Cholesterol 58 mg/dL Low 62-185 Triglycerides 54 mg/dL 16-231 Laboratory test 06/15/2013 N2N/[facility] Import Thyroid Stim 2.39 uIU/mL 0.49- 4.67 finding Hormone CBC 06/15/2013 [facility]N/[facility] Import Hematocrit 40.6 % 36-46.1 Hemoglobin 13.1 gm/dL 11.6-15.8 Mean Cell Volume 93.8 fl 80.9-99 Mean Corpuscular HGB 30.3 pg 25.9-32.7 Mean Corpuscular HGB Conc 32.3 g/dL 30.8-34.3 Mean Platelet Volume 9.0 fL 8.9-12.4 Platelet Count 204 K/uL 155-360 Red Blood Count 4.33 M/uL 3.9-5.4 Red Cell Distri Width %CV 14.0 % 11.7-14.4 White Blood Count 6.6 K/uL 3.1-10.7 Comprehensive Metabolic Panel 06/15/2013 [facility] Import Alb/Glob 0.9 ratio Albumin 3.4 g/dL Low 3.5-5 Alkaline Phosphatase 73 U/L 50-136 Anion Gap 11 mEq/L 8-16 BUN 19 mg/dL 5-23 BUN/Creat 21.1 ratio Bilirubin,Total 0.7 mg/dL 0.2-1.2 Calcium 8.9 mg/dL 8.5-10.1 Carbon Dioxide 29 mEq/L 18-29 Chloride 106 mmol/L 98-107 Creatinine 0.9 mg/dL 0.5-1.4 Globulin 3.8 g/dL 1.9-4.3 Glom Filtration Rate, Estimate >60 mL/min Glucose 90 mg/dL 76-115 If >60 mL/min 59 Potassium 3.8 mmol/L 3.5-5.1 SGPT/Alt 14 U/L Low 30-65 Sgot/Ast 16 U/L 16-40 Sodium 142 mmol/L 136-145 Total Protein 7.2 g/dL 6.3-8 LDL Cholesterol Profile 02/17/2013 N[facility] Import Cholesterol 176 mg/dL 120-200 HDL Cholesterol 94 mg/dL High 83 LDL-Cholesterol 72 mg/dL 62-185 Triglycerides 52 mg/dL 16-231 Laboratory test 08/19/2012 [facility] Import Microalbumin,Random 20.9 mg/L High 0-18.5 finding Urine Comprehensive 08/19/2012 [facility] Import Alb/Glob 1.0 ratio Metabolic Panel Albumin 3.7 g/dL 3.5-5 Alkaline Phosphatase 67 U/L 50-136 Anion Gap 12 mEq/L 8-16 BUN 21 mg/dL 5-23 BUN/Creat 21.0 ratio Bilirubin,Total 0.6 mg/dL 0.2-1.2 Calcium 9.4 mg/dL 8.5-10.1 Carbon Dioxide 29 mEq/L 18-29 Chloride 106 mmol/L 98-107 Creatinine 1.0 mg/dL 0.5-1.4 Globulin 3.8 g/dL 1.9-4.3 Glom Filtration Rate, Estimate 58 mL/min Glucose 94 mg/dL 76-115 If >60 mL/min 60 Potassium 4.0 mmol/L 3.5-5.1 SGPT/Alt 15 U/L Low 30-65 Sgot/Ast 14 U/L Low 16-40 Sodium 143 mmol/L 136-145 Total Protein 7.5 g/dL 6.3-8 LDL Cholesterol 08/19/2012 [facility] Import Cholesterol 215 mg/dL High 120- 200 Profile HDL Cholesterol 92 mg/dL High 29-83 LDL-Cholesterol 108 mg/dL 62-185 Triglycerides 73 mg/dL 16-231 Liver Function Tests 08/19/2012 [facility] Import Alb/Glob 1.0 ratio Albumin 3.7 g/dL 3.5-5 Alkaline Phosphatase 67 U/L 50-136 Bilirubin,Direct 0.2 mg/dL 0.1-0.4 Bilirubin,Indirect 0.4 mg/dL 0-0.9 Bilirubin,Total 0.6 mg/dL 0.2-1.2 Globulin 3.8 g/dL 1.9-4.3 SGPT/Alt 15 U/L Low 30-65 Sgot/Ast 14 U/L Low 16-40 Total Protein 7.5 g/dL 6.3-8 Comprehensive Metabolic Panel 07/28/2012 N[facility] Import Alb/Glob 0.9 ratio Albumin 3.8 g/dL 3.5-5 Alkaline Phosphatase 81 U/L 50-136 Anion Gap 11 mEq/L 8-16 BUN 22 mg/dL 5-23 BUN/Creat 22.0 ratio Bilirubin,Total 0.6 mg/dL 0.2-1.2 Calcium 9.4 mg/dL 8.5-10.1 Carbon Dioxide 31 mEq/L High 18-29 Chloride 104 mmol/L 98-107 Creatinine 1.0 mg/dL 0.5-1.4 Globulin 4.1 g/dL 1.9-4.3 Glom Filtration Rate, Estimate 58 mL/min Glucose 81 mg/dL 76-115 If >60 mL/min 61 Potassium 4.0 mmol/L 3.5-5.1 SGPT/Alt 15 U/L Low 30-65 Sgot/Ast 15 U/L Low 16-40 Sodium 142 mmol/L 136-145 Total Protein 7.9 g/dL 6.3-8 LDL Cholesterol 07/28/2012 [facility] Import Cholesterol 248 mg/dL High 120- 200 Profile HDL Cholesterol 100 mg/dL High 29-83 LDL-Cholesterol 133 mg/dL 62-185 Triglycerides 76 mg/dL 16-231 Laboratory test 07/28/2012 [facility] Import Microalbumin,Random 12.3 mg/L 0-18.5 finding Urine CBC 07/28/2012 [facility] Import Hematocrit 42.0 % 36-46.1 Hemoglobin 13.7 gm/dL 11.6-15.8 Mean Cell Volume 92.5 fl 80.9-99 Mean Corpuscular HGB 30.2 pg 25.9-32.7 Mean Corpuscular HGB Conc 32.6 g/dL 30.8-34.3 Mean Platelet Volume 9.3 fL 8.9-12.4 Platelet Count 220 K/uL 155-360 Red Blood Count 4.54 M/uL 3.9-5.4 Red Cell Distri Width %CV 14.4 % 11.7-14.4 White Blood Count 5.7 K/uL 3.1-10.7 Laboratory test finding 07/24/2012 [facility] Import CK 66 U/L 26-190 Troponin-I < 0.02 ng/mL 0-0.5 62 Laboratory test finding 07/24/2012 [facility] Import CK 74 U/L 26-190 Troponin-I < 0.02 ng/mL 0-0.5 63 Laboratory test finding 07/23/2012 [facility] Import CK 93 U/L 26-190 Sedimentation Rate 44 mm/hr High 0-30 Troponin-I < 0.02 ng/mL 0-0.5 64 CBC W/Automated Diff 07/23/2012 N2N/[facility] Import Bas% 0.8 % 0-1.1 Baso # 0.06 K/uL 0-0.1 Eo% 9.9 % High 0-6.6 Eos # 0.74 K/uL High 0-0.5 Hematocrit 40.4 % 36-46.1 Hemoglobin 13.1 gm/dL 11.6-15.8 Lymph # 2.05 K/uL 0.8-3.4 Lymph % 27.5 % 17-46.1 Mean Cell Volume 92.9 fl 80.9-99 Mean Corpuscular HGB 30.1 pg 25.9-32.7 Mean Corpuscular HGB Conc 32.4 g/dL 30.8-34.3 Mean Platelet Volume 9.3 fL 8.9-12.4 Allen # 0.59 K/uL 0.3-0.9 Allen % 7.9 % 4.3-13.2 Neut# 4.02 K/uL 1-7 Neut% 53.9 % 40.4-72.8 Platelet Count 201 K/uL 155-360 Red Blood Count 4.35 M/uL 3.9-5.4 Red Cell Distri Width %CV 14.2 % 11.7-14.4 Red Cell Distri Width SD 47.2 fl High 3-47 White Blood Count 7.5 K/uL 3.1-10.7 Comprehensive Metabolic Panel 07/23/2012 N2N/[facility] Import Alb/Glob 0.9 ratio Albumin 3.5 g/dL 3.5-5 Alkaline Phosphatase 72 U/L 50-136 Anion Gap 10 mEq/L 8-16 BUN 24 mg/dL High 5-23 BUN/Creat 24.0 ratio Bilirubin,Total 0.3 mg/dL 0.2-1.2 Calcium 9.0 mg/dL 8.5-10.1 Carbon Dioxide 30 mEq/L High 18-29 Chloride 106 mmol/L 98-107 Creatinine 1.0 mg/dL 0.5-1.4 Globulin 3.8 g/dL 1.9-4.3 Glom Filtration Rate, Estimate 58 mL/min Glucose 106 mg/dL 76-115 If >60 mL/min 65 Potassium 3.7 mmol/L 3.5-5.1 SGPT/Alt 13 U/L Low 30-65 Sgot/Ast 15 U/L Low 16-40 Sodium 142 mmol/L 136-145 Total Protein 7.3 g/dL 6.3-8 Imaging finding 07/09/2011 N2N/[facility] Import Dexa Scan, Axial <pending> Skeleton, One Or More Sites Laboratory test 06/04/2011 N2N/[facility] Import Glycohemoglobin (A1c) 5.9 % 4.8-6 66 finding Microalbumin,Random Urine 20.7 mg/L High 0-18.5 Thyroid Stim Hormone 3.08 uIU/mL 0.49-4.67 eAG 123 mg/dL CBS W/Automated Diff 06/04/2011 N2N/[facility] Import Bas% 0.9 % 0-1.1 Baso # 0.04 K/uL 0-0.1 Eo% 10.0 % High 0-6.6 Eos # 0.47 K/uL 0-0.5 Hematocrit 40.3 % 36-46.1 Hemoglobin 12.9 gm/dL 11.6-15.8 Lymph # 1.46 K/uL 0.8-3.4 Lymph % 31.1 % 17-46.1 Mean Cell Volume 96.0 fl 80.9-99 Mean Corpuscular HGB 30.7 pg 25.9-32.7 Mean Corpuscular HGB Conc 32.0 g/dL 30.8-34.3 Mean Platelet Volume 9.7 fL 8.9-12.4 Allen # 0.37 K/uL 0.3-0.9 Allen % 7.9 % 4.3-13.2 Neut# 2.36 K/uL 1-7 Neut% 50.1 % 40.4-72.8 Platelet Count 189 K/uL 155-360 Red Blood Count 4.20 M/uL 3.9-5.4 Red Cell Distri Width %CV 14.0 % 11.7-14.4 Red Cell Distri Width SD 47.7 fl High 3-47 White Blood Count 4.7 K/uL 3.1-10.7 Comprehensive Metabolic Panel 06/04/2011 N2N/[facility] Import Alb/Glob 0.9 ratio Albumin 3.4 g/dL Low 3.5-5 Alkaline Phosphatase 58 U/L 50-136 Anion Gap 11 mEq/L 8-16 BUN 20 mg/dL 5-23 BUN/Creat 20.0 ratio Bilirubin,Total 0.6 mg/dL 0.2-1.2 Calcium 8.8 mg/dL 8.5-10.1 Carbon Dioxide 29 mEq/L 18-29 Chloride 106 mmol/L 98-107 Creatinine 1.0 mg/dL 0.5-1.4 Globulin 3.9 g/dL 1.9-4.3 Glom Filtration Rate, Estimate 58 mL/min Glucose 81 mg/dL 76-115 If >60 mL/min 67 Potassium 4.0 mmol/L 3.5-5.1 SGPT/Alt 14 U/L Low 30-65 Sgot/Ast 13 U/L Low 16-40 Sodium 142 mmol/L 136-145 Total Protein 7.3 g/dL 6.3-8 LDL Cholesterol Profile 06/04/2011 N2N/[facility] Import Cholesterol 200 mg/dL 120-200 HDL Cholesterol 91 mg/dL High 29-83 LDL-Cholesterol 95 mg/dL 62-185 Triglycerides 69 mg/dL 16-231 1 AA 09/27 2 Standard intensity warfarin therapeutic range: 2.0-3.0 High intensity warfarin therapeutic range: 2.5-3.5 3 AA 09/27 4 Because ethnic data is not always readily available, this report includes an eGFR for both -Americans and non- Americans. The National Kidney Disease Education Program (NKDEP) does not endorse the use of the MDRD equation for patients that are not between the ages of 18 and 70, are , have extremes of body size, muscle mass, or nutritional status, or are non- or non-. According to the National Kidney Foundation, irrespective of diagnosis, the stage of the disease is based on the level of kidney function: Stage Description GFR(mL/min/1.73 m(2)) 1 Kidney damage with normal or decreased GFR 90 2 Kidney damage with mild decrease in GFR 60-89 3 Moderate decrease in GFR 30-59 4 Severe decrease in GFR 15-29 5 Kidney failure <15 (or dialysis) 5 PT RETURNED FOR REDRAW 6 E78.5,I10 7 Note: Persistent reduction for 3 months or more in an eGFR <60 mL/min/1.73 m2 defines CKD. Patients with eGFR values >/=60 mL/min/1.73 m2 may also have CKD if evidence of persistent proteinuria is present. The original MDRD equation for estimated GFR is not valid for patients less than 18 years of age. Additional information may be found at [email or web address]. 8 Reference Guidelines*: Desirable: ........... < 200 mg/dL Borderline High: ..... 200-239 mg/dL High: ................ >=240 mg/dL * The National Cholesterol Education Program (NCEP) 9 Reference Guidelines*: Low HDL: ..... < 40 mg/dL Normal: ..... 40-60 mg/dL Desirable: ... > 60 mg/dL *The National Cholesterol Education Program(NCEP) 10 Reference Guidelines*: Optimal:........... <100 mg/dL Near Optimal....... 100-129 mg/dL Borderline High.... 130-159 mg/dL High............... 160-189 mg/dL Very High.......... >=190 mg/dL * Source: National Cholesterol Education Program (NCEP) 11 Reference Guidelines*: Normal: ............. < 150 mg/dL Borderline High: .... 150-199 mg/dL High: ............... 200-499 mg/dL Very High: .......... > 500 mg/dL * Source: National Cholesterol Education Program (NCEP) 12 R63.4 E78.5 I10 13 Elevated levels of HbA1c suggest the need for more aggressive treatment of glycemia. The [place] Diabetes [employer] recommends that a primary goal of therapy should be a HbA1c of <7% and that physicians should re-evaluate the treatment regimen in patients with HbA1c values consistently >8%. 14 Vitamin D deficiency has been defined by the [place] of [employer] and an Endocrine Society practice guideline as a level of serum 25-OH vitamin D less than 20 ng/mL (1,2). The Endocrine Society went on to further define vitamin D insufficiency as a level between 21 and 29 ng/mL (2). 1. IOM ([place] of [employer]). 2010. Dietary reference intakes for calcium and D. [place]: The National Academies Press. 2. Corwin MF, Andrew SMITH, Deisy VITALE, et al. Evaluation, treatment, and prevention of vitamin D deficiency: an Endocrine Society clinical practice guideline. JCEM. 2010; 96(7):1911-30. Performed at: RN - [facility] [address] [id number] Flame Channeler: Kate Grimaldo MD, Phone: [phone] 15 Note: Persistent reduction for 3 months or more in an eGFR <60 mL/min/1.73 m2 defines CKD. Patients with eGFR values >/=60 mL/min/1.73 m2 may also have CKD if evidence of persistent proteinuria is present. The original MDRD equation for estimated GFR is not valid for patients less than 18 years of age. Additional information may be found at [email or web address]. 16 Reference Guidelines*: Desirable: ........... < 200 mg/dL Borderline High: ..... 200-239 mg/dL High: ................ >=240 mg/dL * The National Cholesterol Education Program (NCEP) 17 Reference Guidelines*: Low HDL: ..... < 40 mg/dL Normal: ..... 40-60 mg/dL Desirable: ... > 60 mg/dL *The National Cholesterol Education Program(NCEP) 18 Reference Guidelines*: Optimal:........... <100 mg/dL Near Optimal....... 100-129 mg/dL Borderline High.... 130-159 mg/dL High............... 160-189 mg/dL Very High.......... >=190 mg/dL * Source: National Cholesterol Education Program (NCEP) 19 Reference Guidelines*: Normal: ............. < 150 mg/dL Borderline High: .... 150-199 mg/dL High: ............... 200-499 mg/dL Very High: .......... > 500 mg/dL * Source: National Cholesterol Education Program (NCEP) 20 E78.5,I10 21 Negative <0.80 Equivocal 0.80 - 1.19 Positive >1.19 IgM levels may peak at 3-6 weeks post infection, then gradually decline. 22 Note: Persistent reduction for 3 months or more in an eGFR <60 mL/min/1.73 m2 defines CKD. Patients with eGFR values >/=60 mL/min/1.73 m2 may also have CKD if evidence of persistent proteinuria is present. The original MDRD equation for estimated GFR is not valid for patients less than 18 years of age. Additional information may be found at [email or web address]. 23 Reference Guidelines*: Desirable: ........... < 200 mg/dL Borderline High: ..... 200-239 mg/dL High: ................ >=240 mg/dL * The National Cholesterol Education Program (NCEP) 24 Reference Guidelines*: Low HDL: ..... < 40 mg/dL Normal: ..... 40-60 mg/dL Desirable: ... > 60 mg/dL *The National Cholesterol Education Program(NCEP) 25 Reference Guidelines*: Optimal:........... <100 mg/dL Near Optimal....... 100-129 mg/dL Borderline High.... 130-159 mg/dL High............... 160-189 mg/dL Very High.......... >=190 mg/dL * Source: National Cholesterol Education Program (NCEP) 26 Reference Guidelines*: Normal: ............. < 150 mg/dL Borderline High: .... 150-199 mg/dL High: ............... 200-499 mg/dL Very High: .......... > 500 mg/dL * Source: National Cholesterol Education Program (NCEP) 27 Positive: 5 of the following Borrelia-specific bands: 18,23,28,30,39,41,45,58, 66, and 93. Negative: No bands or banding patterns which do not meet positive criteria. 28 Note: An equivocal or positive EIA result followed by a negative Western Blot result is considered NEGATIVE. An equivocal or positive EIA result followed by a positive Western Blot is considered POSITIVE by the CDC. Positive: 2 of the following bands: 23,39 or 41 Negative: No bands or banding patterns which do not meet positive criteria. Criteria for positivity are those recommended by CDC/ASTPHLD. p23=Osp C, e77=pdxicksed Note: Sera from individuals with the following may cross react in the [place] Western Blot assays: other spirochetal diseases (periodontal disease, leptospirosis, relapsing fever, yaws, and pinta); connective autoimmune (Rheumatoid Arthritis and Systemic Lupus Erythematosus and also individuals with Antinuclear Antibody); other infections ([place] Spotted Fever; Yue-Malone Virus, and Cytomegalovirus). Performed at: [facility] [place] [id number] Flame Channeler: Kate Grimaldo MD, Phone: [phone] 29 A69.20 30 Negative <0.80 Equivocal 0.80 - 1.19 Positive >1.19 IgM levels may peak at 3-6 weeks post infection, then gradually decline. 31 Positive: 5 of the following Borrelia-specific bands: 18,23,28,30,39,41,45,58, 66, and 93. Negative: No bands or banding patterns which do not meet positive criteria. 32 Note: An equivocal or positive EIA result followed by a negative Western Blot result is considered NEGATIVE. An equivocal or positive EIA result followed by a positive Western Blot is considered POSITIVE by the CDC. Positive: 2 of the following bands: 23,39 or 41 Negative: No bands or banding patterns which do not meet positive criteria. Criteria for positivity are those recommended by CDC/ASTPHLD. p23=Osp C, m05=jjqhfotom Note: Sera from individuals with the following may cross react in the [place] Western Blot assays: other spirochetal diseases (periodontal disease, leptospirosis, relapsing fever, yaws, and pinta); connective autoimmune (Rheumatoid Arthritis and Systemic Lupus Erythematosus and also individuals with Antinuclear Antibody); other infections ([place] Spotted Fever; [place]-Malone Virus, and Cytomegalovirus). Performed at: [facility] [id number] Flame Channeler: Kate Grimaldo MD, Phone: [phone] Note: Persistent reduction for 3 months or more in an eGFR <60 mL/min/1.73 m2 defines CKD. Patients with eGFR values >/=60 mL/min/1.73 m2 may also have CKD if evidence of persistent proteinuria is present. The original MDRD equation for estimated GFR is not valid for patients less than 18 years of age. Additional information may be found at [email or web address]. 34 Reference Guidelines*: Desirable: ........... < 200 mg/dL Borderline High: ..... 200-239 mg/dL High: ................ >=240 mg/dL * The National Cholesterol Education Program (NCEP) 35 Reference Guidelines*: Low HDL: ..... < 40 mg/dL Normal: ..... 40-60 mg/dL Desirable: ... > 60 mg/dL *The National Cholesterol Education Program(NCEP) 36 Reference Guidelines*: Optimal:........... <100 mg/dL Near Optimal....... 100-129 mg/dL Borderline High.... 130-159 mg/dL High............... 160-189 mg/dL Very High.......... >=190 mg/dL * Source: National Cholesterol Education Program (NCEP) 37 Reference Guidelines*: Normal: ............. < 150 mg/dL Borderline High: .... 150-199 mg/dL High: ............... 200-499 mg/dL Very High: .......... > 500 mg/dL * Source: National Cholesterol Education Program (NCEP) 38 Reference Guidelines*: Desirable: ........... < 200 mg/dL Borderline High: ..... 200-239 mg/dL High: ................ >=240 mg/dL * The National Cholesterol Education Program (NCEP) 39 Reference Guidelines*: Low HDL: ..... < 40 mg/dL Normal: ..... 40-60 mg/dL Desirable: ... > 60 mg/dL *The National Cholesterol Education Program(NCEP) 40 Reference Guidelines*: Optimal:........... <100 mg/dL Near Optimal....... 100-129 mg/dL Borderline High.... 130-159 mg/dL High............... 160-189 mg/dL Very High.......... >=190 mg/dL * Source: National Cholesterol Education Program (NCEP) 41 Reference Guidelines*: Normal: ............. < 150 mg/dL Borderline High: .... 150-199 mg/dL High: ............... 200-499 mg/dL Very High: .......... > 500 mg/dL * Source: National Cholesterol Education Program (NCEP) 42 Note: Persistent reduction for 3 months or more in an eGFR <60 mL/min/1.73 m2 defines CKD. Patients with eGFR values >/=60 mL/min/1.73 m2 may also have CKD if evidence of persistent proteinuria is present. The original MDRD equation for estimated GFR is not valid for patients less than 18 years of age. Additional information may be found at [email or web address]. 43 Reference Guidelines*: Desirable: ........... < 200 mg/dL Borderline High: ..... 200-239 mg/dL High: ................ >=240 mg/dL * The National Cholesterol Education Program (NCEP) 44 Reference Guidelines*: Low HDL: ..... < 40 mg/dL Normal: ..... 40-60 mg/dL Desirable: ... > 60 mg/dL *The National Cholesterol Education Program(NCEP) 45 Reference Guidelines*: Optimal:........... <100 mg/dL Near Optimal....... 100-129 mg/dL Borderline High.... 130-159 mg/dL High............... 160-189 mg/dL Very High.......... >=190 mg/dL * Source: National Cholesterol Education Program (NCEP) 46 Reference Guidelines*: Normal: ............. < 150 mg/dL Borderline High: .... 150-199 mg/dL High: ............... 200-499 mg/dL Very High: .......... > 500 mg/dL * Source: National Cholesterol Education Program (NCEP) 47 Note: Persistent reduction for 3 months or more in an eGFR <60 mL/min/1.73 m2 defines CKD. Patients with eGFR values >/=60 mL/min/1.73 m2 may also have CKD if evidence of persistent proteinuria is present. The original MDRD equation for estimated GFR is not valid for patients less than 18 years of age. Additional information may be found at [email or web address]. 48 Reference Guidelines*: Desirable: ........... < 200 mg/dL Borderline High: ..... 200-239 mg/dL High: ................ >=240 mg/dL * The National Cholesterol Education Program (NCEP) 49 Reference Guidelines*: Low HDL: ..... < 40 mg/dL Normal: ..... 40-60 mg/dL Desirable: ... > 60 mg/dL *The National Cholesterol Education Program(NCEP) 50 Reference Guidelines*: Optimal:........... <100 mg/dL Near Optimal....... 100-129 mg/dL Borderline High.... 130-159 mg/dL High............... 160-189 mg/dL Very High.......... >=190 mg/dL * Source: National Cholesterol Education Program (NCEP) 51 Reference Guidelines*: Normal: ............. < 150 mg/dL Borderline High: .... 150-199 mg/dL High: ............... 200-499 mg/dL Very High: .......... > 500 mg/dL * Source: National Cholesterol Education Program (NCEP) 52 Note: Persistent reduction for 3 months or more in an eGFR <60 mL/min/1.73 m2 defines CKD. Patients with eGFR values >/=60 mL/min/1.73 m2 may also have CKD if evidence of persistent proteinuria is present. The original MDRD equation for estimated GFR is not valid for patients less than 18 years of age. Additional information may be found at [email or web address]. 53 Reference Guidelines*: Desirable: ........... < 200 mg/dL Borderline High: ..... 200-239 mg/dL High: ................ >=240 mg/dL * The National Cholesterol Education Program (NCEP) 54 Reference Guidelines*: Low HDL: ..... < 40 mg/dL Normal: ..... 40-60 mg/dL Desirable: ... > 60 mg/dL *The National Cholesterol Education Program(NCEP) 55 Reference Guidelines*: Optimal:........... <100 mg/dL Near Optimal....... 100-129 mg/dL Borderline High.... 130-159 mg/dL High............... 160-189 mg/dL Very High.......... >=190 mg/dL * Source: National Cholesterol Education Program (NCEP) 56 Reference Guidelines*: Normal: ............. < 150 mg/dL Borderline High: .... 150-199 mg/dL High: ............... 200-499 mg/dL Very High: .......... > 500 mg/dL * Source: National Cholesterol Education Program (NCEP) 57 Note: Persistent reduction for 3 months or more in an eGFR <60 mL/min/1.73 m2 defines CKD. Patients with eGFR values >/=60 mL/min/1.73 m2 may also have CKD if evidence of persistent proteinuria is present. The original MDRD equation for estimated GFR is not valid for patients less than 18 years of age. Additional information may be found at [email or web address]. 58 Note: Persistent reduction for 3 months or more in an eGFR <60 mL/min/1.73 m2 defines CKD. Patients with eGFR values >/=60 mL/min/1.73 m2 may also have CKD if evidence of persistent proteinuria is present. The original MDRD equation for estimated GFR is not valid for patients less than 18 years of age. Additional information may be found at [email or web address]. 59 Note: Persistent reduction for 3 months or more in an eGFR <60 mL/min/1.73 m2 defines CKD. Patients with eGFR values >/=60 mL/min/1.73 m2 may also have CKD if evidence of persistent proteinuria is present. The original MDRD equation for estimated GFR is not valid for patients less than 18 years of age. Additional information may be found at [email or web address]. 60 Note: Persistent reduction for 3 months or more in an eGFR <60 mL/min/1.73 m2 defines CKD. Patients with eGFR values >/=60 mL/min/1.73 m2 may also have CKD if evidence of persistent proteinuria is present. The original MDRD equation for estimated GFR is not valid for patients less than 18 years of age. Additional information may be found at [email or web address]. 61 Note: Persistent reduction for 3 months or more in an eGFR <60 mL/min/1.73 m2 defines CKD. Patients with eGFR values >/=60 mL/min/1.73 m2 may also have CKD if evidence of persistent proteinuria is present. The original MDRD equation for estimated GFR is not valid for patients less than 18 years of age. Additional information may be found at [email or web address]. 62 0 - 0.5 ng/mL: No evidence of myocardial injury 0.6 - 1.4 ng/mL: Mild elevation, suggesting possible myocardial injury > 1.4 ng/mL: Consistent with myocardial injury 63 0 - 0.5 ng/mL: No evidence of myocardial injury 0.6 - 1.4 ng/mL: Mild elevation, suggesting possible myocardial injury > 1.4 ng/mL: Consistent with myocardial injury 64 0 - 0.5 ng/mL: No evidence of myocardial injury 0.6 - 1.4 ng/mL: Mild elevation, suggesting possible myocardial injury > 1.4 ng/mL: Consistent with myocardial injury 65 Note: Persistent reduction for 3 months or more in an eGFR <60 mL/min/1.73 m2 defines CKD. Patients with eGFR values >/=60 mL/min/1.73 m2 may also have CKD if evidence of persistent proteinuria is present. The original MDRD equation for estimated GFR is not valid for patients less than 18 years of age. Additional information may be found at [email or web address]. 66 A1c value between 5.7% and 6.4% is considered at increased risk for diabetes. A1c value greater than 6.5 % is considered essentially diagnostic for Type II diabetes. Current guidelines recommend a treatment goal of <7% for diabetic patients. This method will measure glycosylated hemoglobin variants, HbS, HbG, HbH, HbWayne, HbC, HbE, etc. Other hemoglobin- opathies may give incorrect results with this test. 67 Note: Persistent reduction for 3 months or more in an eGFR <60 mL/min/1.73 m2 defines CKD. Patients with eGFR values >/=60 mL/min/1.73 m2 may also have CKD if evidence of persistent proteinuria is present. The original MDRD equation for estimated GFR is not valid for patients less than 18 years of age. Additional information may be found at [email or web address].org. Procedures Date Code Description Status 08/22/2018 Inject/Drain Joint/Bursa Major W/O US Completed 03/04/2018 92984 Noninvasive Ear Or Pulse Oximetry For Oxygen Completed Saturation 10/29/2017 36041021 Mammogram Completed 10/29/2017 11704 Mammography Unilateral Completed 04/23/201765541 Inject/Drain Joint/Bursa Major W/O US Completed 09/20/2015 74089 Bone Density Study, Single Photon Absorptiometry Completed 09/12/2015 91099 Pure Tone Hearing Test, Air Completed 10/04/2014 [id number] Diabetic Retinal Eye Exam Completed 09/06/2014 09699 Pure Tone Hearing Test, Air Completed 11/24/2013 59537 EKG Tracing & Interpretation Completed 08/10/2013 89492 Pure Tone-Air Condition Only Completed 06/07/2013 73301 Pure Tone-Air Condition Only Completed 08/11/2012 44800 Stress Test Completed 08/11/2012 31542 Myocardial Perfusion Imaging Tomographic (Spect) Completed Multiple Studies 06/18/2011 04283 EKG Tracing & Interpretation Completed 06/18/2011 11799 Pure Tone-Air Condition Only Completed 11/20/2010 91838 Destruction Of Benign Lesions Any Method 1-14 lesions Completed 05/17/2010 [id number] Colonoscopy Completed 07/05/2008 17394 Demo & Eval Of PT Utilization Of Aerosol Completed Nebulizer/Inhaler 10/21/1992 71805 Allergy Injection - Single Completed 09/23/1992 03701 Allergy Injection - Single Completed 09/02/1992 78990 Allergy Injection - Single Completed 08/12/1992 54272 Allergy Injection - Single Completed 07/22/1992 12052 Allergy Injection - Single Completed 07/01/1992 32796 Allergy Injection - Single Completed 52157 Colonoscopy Flexible Diagnostic Completed Encounters Type Date Location Provider Dx Diagnosis Office Visit 08/22/2018 [facility] Kartik Woods M.D. M17.12 Unilateral 8:00a [facility] primary osteoarthritis, left knee Office Visit 04/23/2017 Orth[facility] Taiwo Pride, [id number] Sprain of right 11:15a [facility] AT rotator cuff Carlos capsule, initial encounter Office Visit 01/23/2011 [facility] 388.72 Otalgia Referred 9:30a [facility] AT Carlos Amras M.D. Pain 723.9 Cervical Region Musculoskeletal Disorders & Symptoms Unspec Plan of Treatment Future Appointment(s):10/31/2018 9:45 am - Kartik Woods M.D. at [facility]09/27/2018 9:30 am - CELSA Linares at [facility]09/27/2018 9:30 am - Kartik Woods M.D. at [facility]10/17/2018 10:00 am - Dimitri Raman MD at [facility]2018 - Kartik Woods M.D.M17.12 Unilateral primary osteoarthritis, left kneeFollow up:Follow up: Left total knee replacement 09/27/18
--- OUTSIDE RECORDS SUMMARY | 2018-09-27 05:39 | XMS REPORT | Continuity of Care Document ---
:1940 External Reference #:[id number] Author Name Jyotsna Rivera Care Team Providers Name Role Phone Dimitri Raman MD Primary Care Physician Unavailable Payers Date Identification Numbers Payment Provider Subscriber Policy Number: [id number] Medicare Margarita Ewing Group Name: Medicare [address] PayID: [id number] [place] [address] Effective: 2014 Policy Number: Lifetime Benefit James Ewing [id number] Solution Group Name: [facility] [address] [facility] [place] [address] Effective: 2002 Policy Number: [id number] Medicare Margarita Ewing Expires: 2018 Group Name: Medicare [address] PayID: [id number] [place] [address] Advance Directives Description No Information Available Problems Active Problems Provider Date Musculoskeletal disorder of the neck Dimitri Armas M.D. 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 Asthma without status asthmaticus Onset: 03/20/2011 Gastroesophageal reflux disease Onset: 03/20/2011 Family History Date Family Member(s) [...] Use Never Used Drugs Smoking Status Reviewed: 09/14/18 Patient has never smoked Exercise Type/Frequency Exercises sporadically Allergies, Adverse Reactions, Alerts Active Allergies Reaction Severity Comments Date Penicillin rash 01/23/2011 Sulfa nausea vomiting 01/23/2011 Penicillins Free Text Moderate 05/20/2018 Sulfa Antibiotics Free Text Moderate 05/20/2018 Medications Active Medications SIG Qnty Indications Ordering Date Provider Vitamin D 1 weekly 12caps E55.9 Dimitri 05/04/2017 (Ergocalciferol) MD Lamine [id number] Capsules Nasonex 2 spray each 51units Dimitri [...] bid 60tabs Unknown 5mg Tablets Mometasone Furoate Alpha Two Sprays Unknown In Each Nostril 50mcg/Act Suspension Once Daily Proair HFA 2 puffs by mouth Unknown every 4 hours as 108(90Base) mcg/Act needed Aerosol Atorvastatin Calcium Take One Tablet By Unknown Mouth Every Day 10mg Tablets Valsartan-Hydrochlor Take One Tablet By Unknown othiazide Mouth Every Day 80-12.5mg Tablets History Medications Zithromax day number one 6tabs J06.9 [place] 03/04/2018 - 250mg two qd,thendays MD Lamine [...] 20mg a day MD Lamine 09/06/2015 Tablets Budesonide 2 puffs each 25.8units J30.1 Dimitri 06/25/2015 - nare q am MD Lamine 11/04/2015 32mcg/Act Suspension Azithromycin 2 now and 1 6tabs 465.9 Dimitri 04/04/2014 - 250mg daily x 4 days MD Lamine 04/11/2014 Tablets Albuterol Sulfate 1 application 25units J45.909 Dimitri 06/07/2013 - q4h prn MD Lamine 03/13/2016 (2.5mg/3ML) 0.083% Nebulizer Lipitor 1 by mouth every 90tabs E78.5 Dimitri 08/18/2012 - 10mg day MD Lamine 03/08/2015 Tablets Vitb12 1 qd Dimitri 01/23/2011 - 500mcg Licha Armas 04/20/2017 Aspir-81 1 po qd 100tabs Unknown - 81mg 04/19/2017 Tablets Furosemide po qam 30tabs Unknown - 40mg 04/19/2017 Tablets Diltiazem CD 1 qd 90caps 401.9 Dimitri - 120mg MD Lamine 05/08/2014 Caps ER [...] CPT Code Status Date Vaccine Lot # 31622 Given 10/13/2016 Pneumococcal Conjugate Vaccine 13 Valent For Intramuscular Use 04680 Given 02/20/2016 Fluzone High Dose 19333 Given 02/15/2015 Fluzone High Dose 42972 Given 02/07/2014 Influenza Virus 3Yrs & Over 86222 Given 06/07/2013 Zoster (Zostavax) 72540 Given 02/08/2013 Influenza Virus 3Yrs & Over 48658 Given 08/18/2012 Pneumonia Vaccine 76758 Given 08/18/2012 Tdap - Tetanus/Diptheria/Acellular Pertussis 63246 Given 01/28/2012 Influenza Virus 3Yrs & Over 03148 Given 03/02/2008 Influenza Virus 3Yrs & Over 92183 Given 06/10/2006 Pneumonia Vaccine 85444 Given 03/11/2006 Influenza Virus 3Yrs & Over 10513 Given 04/02/2005 Pneumonia Vaccine 54445 Given 02/13/2005 Tetanus And Diptheria (Td) For Adult Use Preservative Free 01904 Given 12/02/1999 Tetanus And Diptheria (Td) For Adult Use Preservative Free 79217 Given 04/14/1996 Flu Vaccine Vital Signs Date Vital Result Comment 09/14/2018 9:08am Height 63 inches 5'3" Weight [...] Facility Test Result H/L Range Note CBC 10/23/2017 N2N/CCD Import Hematocrit 40.5 % 36-46.1 1 Hemoglobin 12.9 gm/dL 11.6-15.8 Mean Cell Volume [...] Panel 10/21/2017 N2N/CCD Import Alb/Glob 0.9 ratio 2 Albumin 3.4 g/dL 3.4-5 Alkaline Phosphatase 48 U/L 45-117 Anion Gap 8 mEq/L 8-16 BUN 20 mg/dL High 7-18 BUN/Creat 25.0 ratio Bilirubin,Total 0.5 mg/dL 0.2-1 Calcium 8.8 mg/dL 8.5-10.1 Carbon Dioxide 25 mmol/L 21-32 Chloride 108 mmol/L High 98-107 Creatinine 0.8 mg/dL 0.6-1.3 Globulin 3.7 g/dL 1.9-4.3 Glom Filtration Rate, Estimate >60 mL/min Glucose 80 mg/dL 74-106 If >60 mL/min 3 Potassium 4.0 mmol/L 3.5-5.1 SGPT/Alt 16 U/L 12-78 Sgot/Ast 23 U/L 15-37 Sodium 141 mmol/L 136-145 Total Protein 7.1 g/dL 6.4-8.2 LDL Cholesterol Profile 10/21/2017 N2N/CCD Import Cholesterol 157 mg/dL 4 HDL Cholesterol 92 mg/dL 5 LDL-Cholesterol 57 mg/dL 6 Triglycerides 42 mg/dL 7 Microalbumin,Random 10/21/2017 N2N/CCD Import Microalbumin,Urine 8.1 mg/L Urine Laboratory test finding 04/27/2017 N2N/CCD Import Glycohemoglobin (A1c) 6.0 % 4.2- 8, 9 6.3 Thyroid Stim Hormone 3.48 uIU/mL 0.3-4.2 Vitamin D,25-Hydroxy 26.5 ng/mL Low 30-100 10 eAG 126 mg/dL CBC No Diff 04/27/2017 N2N/CCD Import Hematocrit 40.9 % 36-46.1 Hemoglobin 13.1 [...] Glucose 81 mg/dL 74-106 If >60 mL/min 11 Potassium 4.6 mmol/L 3.5-5.1 SGPT/Alt 24 U/L 12-78 Sgot/Ast 21 U/L 15-37 Sodium 142 mmol/L 136-145 Total Protein 7.0 g/dL 6.4-8.2 Lipid Panel 04/27/2017 N2N/CCD Import Cholesterol 177 mg/dL 12 HDL Cholesterol 100 mg/dL 13 LDL-Cholesterol 56 mg/dL 14 Triglycerides 103 mg/dL 15 Microalbumin,Random Urine 04/27/2017 N2N/CCD Import Microalbumin,Urine 8.1 mg/L Vitamin B12 And Folate 04/27/2017 N2N/CCD Import Folic Acid 8.7 ng/mL 3.1-1 Serum 7.5 Vitamin B12 345 pg/mL 193-986 Laboratory test 10/07/2016 N2N/CCD Import Lyme IgM 2.24 index High 0- 0.79 16, 17 finding (Reflex Western Blot) Basic Metabolic 10/07/2016 N2N/CCD Import Anion Gap 5 mEq/L Low 8-16 Panel BUN 28 mg/dL High 7-18 BUN/Creat 31.1 ratio Calcium 9.1 mg/dL 8.5-10.1 Carbon Dioxide 30 mmol/L 21-32 Chloride 107 mmol/L 98-107 Creatinine 0.9 mg/dL 0.6-1.3 Glom Filtration Rate, Estimate >60 mL/min Glucose 93 mg/dL 74-106 If >60 mL/min 18 Potassium 4.0 mmol/L 3.5-5.1 Sodium 142 mmol/L 136-145 LDL Cholesterol Profile 10/07/2016 N2N/CCD Import Cholesterol 169 mg/dL 19 HDL Cholesterol 92 mg/dL 20 LDL-Cholesterol 67 mg/dL 21 Triglycerides 50 mg/dL 22 Lyme Igg & Igm By Western 10/07/2016 N2N/CCD Import Lyme AB Igg By Western . Blot Blot Lyme AB Igm By Western Blot . Lyme Igg WB Interpretation Negative 23 Lyme Igm WB Interpretation Positive Abnormal 24 P18 AB Absent P23 AB Present Abnormal P23 AB Absent P28 AB Absent P30 AB Absent P39 AB Absent P39 AB Absent P41 AB Present Abnormal P41 AB Absent P45 AB Absent P58 AB Absent P66 AB Absent P93 AB Absent Microalbumin,Random 10/07/2016 N2N/CCD Import Microalbumin,Urine < 5.0 Urine mg/L Laboratory test 08/17/2016 N2N/CCD Import Lyme IgM (Reflex 2.52 High 0-0 25, finding Western Blot) index .79 26 Lyme Igg & Igm By 08/17/2016 N2N/CCD Import Lyme AB Igg By . Western Blot Western Blot Lyme AB Igm By Western Blot . Lyme Igg WB Interpretation Negative 27 Lyme Igm WB Interpretation Negative 28 P18 AB Absent P23 AB Absent P23 AB Present Abnormal P28 AB Absent P30 AB Absent P39 AB Absent P39 AB Absent P41 AB Absent P41 AB Absent P45 AB Absent P58 AB Absent P66 AB Absent P93 AB Absent Laboratory test 12/04/2015 N2N/CCD Import Microalbumin,Random Urine 9.7 mg/ L finding CBC 12/04/2015 N2N/CCD Import Hematocrit 40.6 % 36-46. 1 Hemoglobin [...] 5.2 K/uL 3.1-10.7 Comprehensive Metabolic Panel 12/04/2015 N2N/CCD Import Alb/Glob 1.0 ratio Albumin 3.7 g/dL [...] Glucose 96 mg/dL 74-106 If >60 mL/min 29 Potassium 4.0 mmol/L 3.5-5.1 SGPT/Alt 17 U/L 12-78 Sgot/Ast 20 U/L 15-37 Sodium 141 mmol/L 136-145 Total Protein 7.4 g/dL 6.4-8.2 LDL Cholesterol Profile 12/04/2015 N2N/CCD Import Cholesterol 174 mg/dL 30 HDL Cholesterol 88 mg/dL 31 LDL-Cholesterol 76 mg/dL 32 Triglycerides 51 mg/dL 33 LDL Cholesterol Profile 09/05/2015 N2N/CCD Import Cholesterol 184 mg/dL 34 HDL Cholesterol 100 mg/dL 35 LDL-Cholesterol 73 mg/dL 36 Triglycerides 54 mg/dL 37 Basic Metabolic Panel 05/29/2015 N2N/CCD Import Anion Gap 7 mEq/L Low 8- 16 BUN 27 mg/dL High 7-18 BUN/Creat 33.7 ratio Calcium 8.7 mg/dL 8.5-10.1 Carbon Dioxide 28 mmol/L 21-32 Chloride 106 mmol/L 98-107 Creatinine 0.8 mg/dL 0.6-1.3 Glom Filtration Rate, Estimate >60 mL/min Glucose 88 mg/dL 74-106 If >60 mL/min 38 Potassium 3.5 mmol/L 3.5-5.1 Sodium 141 mmol/L 136-145 LDL Cholesterol Profile 05/29/2015 N2N/[facility] Import Cholesterol 228 mg/dL High 39 HDL Cholesterol 89 mg/dL 40 LDL-Cholesterol 126 mg/dL 41 Triglycerides 64 mg/dL 42 Laboratory test 03/01/2015 N2N/[facility] Import Microalbumin,Random Urine 298.0 mg/L finding CBC 03/01/2015 N2N/[facility] Import Hematocrit 37.7 % 36-46 .1 Hemoglobin [...] 8.1 K/uL 3.1-10.7 Comprehensive Metabolic Panel 03/01/2015 N2N/[facility] Import Alb/Glob 1.0 ratio Albumin 3.4 g/dL [...] Glucose 96 mg/dL 74-106 If >60 mL/min 43 Potassium 3.7 mmol/L 3.5-5.1 SGPT/Alt 15 U/L 12-78 Sgot/Ast 15 U/L 15-37 Sodium 143 mmol/L 136-145 Total Protein 6.8 g/dL 6.4-8.2 LDL Cholesterol Profile 03/01/2015 N2N/[facility] Import Cholesterol 158 mg/dL 44 HDL Cholesterol 88 mg/dL 45 LDL-Cholesterol 57 mg/dL 46 Triglycerides 65 mg/dL 47 Comprehensive Metabolic Panel 05/25/2014 N2N/CCD Import Alb/Glob [...] Glucose 83 mg/dL 74-106 If >60 mL/min 48 Potassium 3.9 mmol/L 3.5-5.1 SGPT/Alt 14 U/L 12-78 Sgot/Ast 16 U/L 15-37 Sodium 142 mmol/L 136-145 Total Protein 7.1 g/dL 6.4-8.2 LDL Cholesterol Profile 05/25/2014 N2N/CCD Import Cholesterol 171 mg/dL 49 HDL Cholesterol 101 mg/dL 50 LDL-Cholesterol 58 mg/dL 51 Triglycerides 59 mg/dL 52 LDL Cholesterol Profile 2013 N2N/CCD Import Cholesterol 154 mg/dL 120-200 HDL Cholesterol 86 mg/dL High 29-83 LDL-Cholesterol 58 mg/dL Low 62-185 Triglycerides 49 mg/dL 16-231 Imaging finding 2013 N2N/CCD Import Chest Xray [...] 30.8-34.3 Mean Platelet Volume 9.6 fL 8.9-12.4 Imperial # 0.44 K/uL 0.3-0.9 Imperial % 8.7 % 4.3-13.2 Neut# 2.24 K/uL 1-7 Neut% 44.4 % 40.4-72.8 Platelet Count 189 K/uL 155-360 Red Blood Count 4.09 M/uL 3.9-5.4 Red Cell Distri Width %CV 13.8 % 11.7-14.4 Red Cell Distri Width SD 46.4 fl 3-47 White Blood Count 5.0 K/uL 3.1-10.7 Comprehensive Metabolic Panel 2013 N2N/CCD Import Alb/Glob [...] Glucose 82 mg/dL 76-115 If >60 mL/min 53 Potassium 4.1 mmol/L 3.5-5.1 SGPT/Alt 14 U/L [...] Glucose 92 mg/dL 76-115 If >60 mL/min 54 Potassium 4.2 mmol/L 3.5-5.1 SGPT/Alt 13 U/L Low 30-65 Sgot/Ast 14 U/L Low 16-40 Sodium 141 mmol/L 136-145 Total Protein 7.6 g/dL 6.3-8 Imaging finding 09/14/2013 N2N/CCD Import bilateral <pending> screening mammogram LDL Cholesterol 06/15/2013 N2N/CCD Import Cholesterol 160 mg/dL 120-200 Profile HDL Cholesterol 91 mg/dL High 29-83 LDL-Cholesterol 58 mg/dL Low 62-185 Triglycerides 54 mg/dL 16-231 Laboratory test 06/15/2013 N2N/CCD Import Thyroid Stim 2.39 uIU/mL 0.49- 4.67 finding Hormone Comprehensive 06/15/2013 N2N/CCD Import Alb/Glob 0.9 ratio Metabolic Panel Albumin 3.4 g/dL Low 3.5-5 Alkaline Phosphatase 73 U/L 50-136 Anion Gap 11 mEq/L 8-16 BUN 19 mg/dL 5-23 BUN/Creat 21.1 ratio Bilirubin,Total 0.7 mg/dL 0.2-1.2 Calcium 8.9 mg/dL 8.5-10.1 Carbon Dioxide 29 mEq/L 18-29 Chloride 106 mmol/L 98-107 Creatinine 0.9 mg/dL 0.5-1.4 Globulin 3.8 g/dL 1.9-4.3 Glom Filtration Rate, Estimate >60 mL/min Glucose 90 mg/dL 76-115 If >60 mL/min 55 Potassium 3.8 mmol/L 3.5-5.1 SGPT/Alt 14 U/L Low 30-65 Sgot/Ast 16 U/L 16-40 Sodium 142 mmol/L 136-145 Total Protein 7.2 g/dL 6.3-8 CBC 06/15/2013 N2N/CCD Import Hematocrit 40.6 % 36-46.1 Hemoglobin 13.1 gm/dL 11.6-15.8 Mean Cell Volume 93.8 fl 80.9-99 Mean Corpuscular HGB 30.3 pg 25.9-32.7 Mean Corpuscular HGB Conc 32.3 g/dL 30.8-34.3 Mean Platelet Volume 9.0 fL 8.9-12.4 Platelet Count 204 K/uL 155-360 Red Blood Count 4.33 M/uL 3.9-5.4 Red Cell Distri Width %CV 14.0 % 11.7-14.4 White Blood Count 6.6 K/uL 3.1-10.7 LDL Cholesterol Profile 02/17/2013 N2N/CCD Import Cholesterol 176 mg/dL 120-200 HDL Cholesterol 94 mg/dL High 29-83 LDL-Cholesterol 72 mg/dL 62-185 Triglycerides 52 mg/dL 16-231 Laboratory test 08/19/2012 N2N/CCD Import Microalbumin,Random 20.9 mg/L High 0-18.5 finding Urine Comprehensive 08/19/2012 N2N/CCD Import Alb/Glob 1.0 ratio Metabolic Panel Albumin [...] Glucose 94 mg/dL 76-115 If >60 mL/min 56 Potassium 4.0 mmol/L 3.5-5.1 SGPT/Alt 15 U/L Low 30-65 Sgot/Ast 14 U/L Low 16-40 Sodium 143 mmol/L 136-145 Total Protein 7.5 g/dL 6.3-8 LDL Cholesterol 08/19/2012 [facility] Import Cholesterol 215 mg/dL High 120- 200 Profile HDL Cholesterol 92 mg/dL High 29-83 LDL-Cholesterol 108 mg/dL 62-185 Triglycerides 73 mg/dL 16-231 Liver Function Tests 08/19/2012 [facility] Import Alb/Glob 1.0 ratio Albumin 3.7 g/dL 3.5-5 Alkaline Phosphatase 67 U/L 50-136 Bilirubin,Direct 0.2 mg/dL 0.1-0.4 Bilirubin,Indirect 0.4 mg/dL 0-0.9 Bilirubin,Total 0.6 mg/dL 0.2-1.2 Globulin 3.8 g/dL 1.9-4.3 SGPT/Alt 15 U/L Low 30-65 Sgot/Ast 14 U/L Low 16-40 Total Protein 7.5 g/dL 6.3-8 Laboratory test 07/28/2012 [facility] Import Microalbumin,Random 12.3 mg/L 0-18.5 finding Urine CBC 07/28/2012 [facility] Import Hematocrit 42.0 % 36-46.1 Hemoglobin 13.7 gm/dL 11.6-15.8 Mean Cell Volume 92.5 fl 80.9-99 Mean Corpuscular HGB 30.2 pg 25.9-32.7 Mean Corpuscular HGB Conc 32.6 g/dL 30.8-34.3 Mean Platelet Volume 9.3 fL 8.9-12.4 Platelet Count 220 K/uL 155-360 Red Blood Count 4.54 M/uL 3.9-5.4 Red Cell Distri Width %CV 14.4 % 11.7-14.4 White Blood Count 5.7 K/uL 3.1-10.7 Comprehensive Metabolic Panel 07/28/2012 [facility] Import Alb/Glob 0.9 ratio Albumin 3.8 g/dL [...] Glucose 81 mg/dL 76-115 If >60 mL/min 57 Potassium 4.0 mmol/L 3.5-5.1 SGPT/Alt 15 U/L Low 30-65 Sgot/Ast 15 U/L Low 16-40 Sodium 142 mmol/L 136-145 Total Protein 7.9 g/dL 6.3-8 LDL Cholesterol 07/28/2012 N2N/CCD Import Cholesterol 248 mg/dL High 120- 200 Profile HDL Cholesterol 100 mg/dL High 29-83 LDL-Cholesterol 133 mg/dL 62-185 Triglycerides 76 mg/dL 16-231 Laboratory test finding 07/24/2012 N2N/CCD Import CK 66 U/L 26-190 Troponin-I < 0.02 ng/mL 0-0.5 58 Laboratory test finding 07/24/2012 N2N/CCD Import CK 74 U/L 26-190 Troponin-I < 0.02 ng/mL 0-0.5 59 Laboratory test finding 07/23/2012 N2N/CCD Import CK 93 U/L 26-190 Sedimentation Rate 44 mm/hr High 0-30 Troponin-I < 0.02 ng/mL 0-0.5 60 CBC W/Automated Diff 07/23/2012 N2N/CCD Import Bas% [...] 30.8-34.3 Mean Platelet Volume 9.3 fL 8.9-12.4 Imperial # 0.59 K/uL 0.3-0.9 Imperial % 7.9 % 4.3-13.2 Neut# 4.02 K/uL [...] Glucose 106 mg/dL 76-115 If >60 mL/min 61 Potassium 3.7 mmol/L 3.5-5.1 SGPT/Alt 13 U/L Low 30-65 Sgot/Ast 15 U/L Low 16-40 Sodium 142 mmol/L 136-145 Total Protein 7.3 g/dL 6.3-8 Imaging finding 07/09/2011 N2N/CCD Import Dexa Scan, Axial <pending> Skeleton, One Or More Sites Laboratory test 06/04/2011 N2N/CCD Import Glycohemoglobin (A1c) 5.9 % 4.8-6 62 finding Microalbumin,Random Urine 20.7 mg/L High 0-18.5 [...] 30.8-34.3 Mean Platelet Volume 9.7 fL 8.9-12.4 Imperial # 0.37 K/uL 0.3-0.9 Imperial % 7.9 % 4.3-13.2 Neut# 2.36 K/uL [...] Glucose 81 mg/dL 76-115 If >60 mL/min 63 Potassium 4.0 mmol/L 3.5-5.1 SGPT/Alt 14 U/L Low 30-65 Sgot/Ast 13 U/L Low 16-40 Sodium 142 mmol/L 136-145 Total Protein 7.3 g/dL 6.3-8 LDL Cholesterol Profile 06/04/2011 N2N/CCD Import Cholesterol 200 mg/dL 120-200 HDL Cholesterol 91 mg/dL High 29-83 LDL-Cholesterol 95 mg/dL 62-185 Triglycerides 69 mg/dL 16-231 1 PT RETURNED FOR REDRAW 2 E78.5,I10 3 Note: Persistent reduction for 3 months or more in an eGFR <60 mL/min/1.73 m2 defines CKD. Patients with eGFR values >/=60 mL/min/1.73 m2 may also have CKD if evidence of persistent proteinuria is present. The original MDRD equation for estimated GFR is not valid for patients less than 18 years of age. Additional information may be found at www.kdoqi.org. 4 Reference Guidelines*: Desirable: ........... < 200 mg/dL Borderline High: ..... 200-239 mg/dL High: ................ >=240 mg/dL * The National Cholesterol Education Program (NCEP) 5 Reference Guidelines*: Low HDL: ..... < 40 mg/dL Normal: ..... 40-60 mg/dL Desirable: ... > 60 mg/dL *The National Cholesterol Education Program(NCEP) 6 Reference Guidelines*: Optimal:........... <100 mg/dL Near Optimal....... 100-129 mg/dL Borderline High.... 130-159 mg/dL High............... 160-189 mg/dL Very High.......... >=190 mg/dL * Source: National Cholesterol Education Program (NCEP) 7 Reference Guidelines*: Normal: ............. < 150 mg/dL Borderline High: .... 150-199 mg/dL High: ............... 200-499 mg/dL Very High: .......... > 500 mg/dL * Source: National Cholesterol Education Program (NCEP) 8 R63.4 E78.5 I10 9 Elevated levels of HbA1c suggest the need for more aggressive treatment of glycemia. The [place] Diabetes Association recommends that a primary goal of therapy should be a HbA1c of <7% and that physicians should re-evaluate the treatment regimen in patients with HbA1c values consistently >8%. 10 Vitamin D deficiency has been defined by the [place] of [employer] and an Endocrine Society practice guideline as a level of serum 25-OH vitamin D less than 20 ng/mL (1,2). The Endocrine Society went on to further define vitamin D insufficiency as a level between 21 and 29 ng/mL (2). 1. IOM ([place] of [employer]). 2010. Dietary reference intakes for calcium and D. [place]: The National Academies Press. 2. Corwin MF, Andrew SMITH, Deisy VITALE, et al. Evaluation, treatment, and prevention of vitamin D deficiency: an Endocrine Society clinical practice guideline. JCEM. 2010; 96(7):1911-30. Performed at: RN - [facility] [address] [id number] Planning Director: Kate Grimaldo MD, Phone: [phone] Note: Persistent reduction for 3 months or more in an eGFR <60 mL/min/1.73 m2 defines CKD. Patients with eGFR values >/=60 mL/min/1.73 m2 may also have CKD if evidence of persistent proteinuria is present. The original MDRD equation for estimated GFR is not valid for patients less than 18 years of age. Additional information may be found at www.kdoqi.org. 12 Reference Guidelines*: Desirable: ........... < 200 mg/dL Borderline High: ..... 200-239 mg/dL High: ................ >=240 mg/dL * The National Cholesterol Education Program (NCEP) 13 Reference Guidelines*: Low HDL: ..... < 40 mg/dL Normal: ..... 40-60 mg/dL Desirable: ... > 60 mg/dL *The National Cholesterol Education Program(NCEP) 14 Reference Guidelines*: Optimal:........... <100 mg/dL Near Optimal....... 100-129 mg/dL Borderline High.... 130-159 mg/dL High............... 160-189 mg/dL Very High.......... >=190 mg/dL * Source: National Cholesterol Education Program (NCEP) 15 Reference Guidelines*: Normal: ............. < 150 mg/dL Borderline High: .... 150-199 mg/dL High: ............... 200-499 mg/dL Very High: .......... > 500 mg/dL * Source: National Cholesterol Education Program (NCEP) 16 E78.5,I10 17 Negative <0.80 Equivocal 0.80 - 1.19 Positive >1.19 IgM levels may peak at 3-6 weeks post infection, then gradually decline. 18 Note: Persistent reduction for 3 months or more in an eGFR <60 mL/min/1.73 m2 defines CKD. Patients with eGFR values >/=60 mL/min/1.73 m2 may also have CKD if evidence of persistent proteinuria is present. The original MDRD equation for estimated GFR is not valid for patients less than 18 years of age. Additional information may be found at www.kdoqi.org. 19 Reference Guidelines*: Desirable: ........... < 200 mg/dL Borderline High: ..... 200-239 mg/dL High: ................ >=240 mg/dL * The National Cholesterol Education Program (NCEP) 20 Reference Guidelines*: Low HDL: ..... < 40 mg/dL Normal: ..... 40-60 mg/dL Desirable: ... > 60 mg/dL *The National Cholesterol Education Program(NCEP) 21 Reference Guidelines*: Optimal:........... <100 mg/dL Near Optimal....... 100-129 mg/dL Borderline High.... 130-159 mg/dL High............... 160-189 mg/dL Very High.......... >=190 mg/dL * Source: National Cholesterol Education Program (NCEP) 22 Reference Guidelines*: Normal: ............. < 150 mg/dL Borderline High: .... 150-199 mg/dL High: ............... 200-499 mg/dL Very High: .......... > 500 mg/dL * Source: National Cholesterol Education Program (NCEP) 23 Positive: 5 of the following Borrelia-specific bands: 18,23,28,30,39,41,45,58, 66, and 93. Negative: No bands or banding patterns which do not meet positive criteria. 24 Note: An equivocal or positive EIA result [...] are those recommended by CDC/ASTPHLD. p23=Osp C, c08=[id number] Note: Sera from individuals with the following may cross react in the Lyme Western Blot assays: other spirochetal diseases (periodontal disease, leptospirosis, relapsing fever, yaws, and pinta); connective autoimmune (Rheumatoid Arthritis and Systemic Lupus Erythematosus and also individuals with Antinuclear Antibody); other infections ([place] Spotted Fever; Yue-Malone Virus, and Cytomegalovirus). Performed at: [facility] [id number] Planning Director: Kate Grimaldo MD, Phone: [phone] 25 G22.77 26 Negative <0.80 Equivocal 0.80 - 1.19 Positive >1.19 IgM levels may peak at 3-6 weeks post infection, then gradually decline. 27 Positive: 5 of the following Borrelia-specific [...] are those recommended by CDC/ASTPHLD. p23=Osp C, q76=[id number] Note: Sera from individuals with the following may cross react in the Lyme Western Blot assays: other spirochetal diseases (periodontal disease, leptospirosis, relapsing fever, yaws, and pinta); connective autoimmune (Rheumatoid Arthritis and Systemic Lupus Erythematosus and also individuals with Antinuclear Antibody); other infections ([place] Spotted Fever; Yue-Malone Virus, and Cytomegalovirus). Performed at: RN - [facility] [address] [id number] Planning Director: Kate Grimaldo MD, Phone: [phone] 29 Note: Persistent reduction for 3 months or more in an eGFR <60 mL/min/1.73 m2 defines CKD. Patients with eGFR values >/=60 mL/min/1.73 m2 may also have CKD if evidence of persistent proteinuria is present. The original MDRD equation for estimated GFR is not valid for patients less than 18 years of age. Additional information may be found at www.kdoqi.org. 30 Reference Guidelines*: Desirable: ........... < 200 mg/dL Borderline High: ..... 200-239 mg/dL High: ................ >=240 mg/dL * The National Cholesterol Education Program (NCEP) 31 Reference Guidelines*: Low HDL: ..... < 40 mg/dL Normal: ..... 40-60 mg/dL Desirable: ... > 60 mg/dL *The National Cholesterol Education Program(NCEP) 32 Reference Guidelines*: Optimal:........... <100 mg/dL Near Optimal....... 100-129 mg/dL Borderline High.... 130-159 mg/dL High............... 160-189 mg/dL Very High.......... >=190 mg/dL * Source: National Cholesterol Education Program (NCEP) 33 Reference Guidelines*: Normal: ............. < 150 mg/dL Borderline High: .... 150-199 mg/dL High: ............... 200-499 mg/dL Very High: .......... > 500 mg/dL * Source: National Cholesterol Education Program (NCEP) 34 Reference Guidelines*: Desirable: ........... < 200 [...] Source: National Cholesterol Education Program (NCEP) 38 Note: Persistent reduction for 3 months or more in an eGFR <60 mL/min/1.73 m2 defines CKD. Patients with eGFR values >/=60 mL/min/1.73 m2 may also have CKD if evidence of persistent proteinuria is present. The original MDRD equation for estimated GFR is not valid for patients less than 18 years of age. Additional information may be found at www.kdoqi.org. 39 Reference Guidelines*: Desirable: ........... < 200 mg/dL Borderline High: ..... 200-239 mg/dL High: ................ >=240 mg/dL * The National Cholesterol Education Program (NCEP) 40 Reference Guidelines*: Low HDL: ..... < 40 mg/dL Normal: ..... 40-60 mg/dL Desirable: ... > 60 mg/dL *The National Cholesterol Education Program(NCEP) 41 Reference Guidelines*: Optimal:........... <100 mg/dL Near Optimal....... 100-129 mg/dL Borderline High.... 130-159 mg/dL High............... 160-189 mg/dL Very High.......... >=190 mg/dL * Source: National Cholesterol Education Program (NCEP) 42 Reference Guidelines*: Normal: ............. < 150 mg/dL Borderline High: .... 150-199 mg/dL High: ............... 200-499 mg/dL Very High: .......... > 500 mg/dL * Source: National Cholesterol Education Program (NCEP) 43 Note: Persistent reduction for 3 months or more in an eGFR <60 mL/min/1.73 m2 defines CKD. Patients with eGFR values >/=60 mL/min/1.73 m2 may also have CKD if evidence of persistent proteinuria is present. The original MDRD equation for estimated GFR is not valid for patients less than 18 years of age. Additional information may be found at [email or web address]. 44 Reference Guidelines*: Desirable: ........... < 200 mg/dL Borderline High: ..... 200-239 mg/dL High: ................ >=240 mg/dL * The National Cholesterol Education Program (NCEP) 45 Reference Guidelines*: Low HDL: ..... < 40 mg/dL Normal: ..... 40-60 mg/dL Desirable: ... > 60 mg/dL *The National Cholesterol Education Program(NCEP) 46 Reference Guidelines*: Optimal:........... <100 mg/dL Near Optimal....... 100-129 mg/dL Borderline High.... 130-159 mg/dL High............... 160-189 mg/dL Very High.......... >=190 mg/dL * Source: National Cholesterol Education Program (NCEP) 47 Reference Guidelines*: Normal: ............. < 150 mg/dL Borderline High: .... 150-199 mg/dL High: ............... 200-499 mg/dL Very High: .......... > 500 mg/dL * Source: National Cholesterol Education Program (NCEP) 48 Note: Persistent reduction for 3 months or more in an eGFR <60 mL/min/1.73 m2 defines CKD. Patients with eGFR values >/=60 mL/min/1.73 m2 may also have CKD if evidence of persistent proteinuria is present. The original MDRD equation for estimated GFR is not valid for patients less than 18 years of age. Additional information may be found at [email or web address]. 49 Reference Guidelines*: Desirable: ........... < 200 mg/dL Borderline High: ..... 200-239 mg/dL High: ................ >=240 mg/dL * The National Cholesterol Education Program (NCEP) 50 Reference Guidelines*: Low HDL: ..... < 40 mg/dL Normal: ..... 40-60 mg/dL Desirable: ... > 60 mg/dL *The National Cholesterol Education Program(NCEP) 51 Reference Guidelines*: Optimal:........... <100 mg/dL Near Optimal....... 100-129 mg/dL Borderline High.... 130-159 mg/dL High............... 160-189 mg/dL Very High.......... >=190 mg/dL * Source: National Cholesterol Education Program (NCEP) 52 Reference Guidelines*: Normal: ............. < 150 mg/dL Borderline High: .... 150-199 mg/dL High: ............... 200-499 mg/dL Very High: .......... > 500 mg/dL * Source: National Cholesterol Education Program (NCEP) 53 Note: Persistent reduction for 3 months or more in an eGFR <60 mL/min/1.73 m2 defines CKD. Patients with eGFR values >/=60 mL/min/1.73 m2 may also have CKD if evidence of persistent proteinuria is present. The original MDRD equation for estimated GFR is not valid for patients less than 18 years of age. Additional information may be found at [email or web address]. 54 Note: Persistent reduction for 3 months or more in an eGFR <60 mL/min/1.73 m2 defines CKD. Patients with eGFR values >/=60 mL/min/1.73 m2 may also have CKD if evidence of persistent proteinuria is present. The original MDRD equation for estimated GFR is not valid for patients less than 18 years of age. Additional information may be found at [email or web address]. 55 Note: Persistent reduction for 3 months or more in an eGFR <60 mL/min/1.73 m2 defines CKD. Patients with eGFR values >/=60 mL/min/1.73 m2 may also have CKD if evidence of persistent proteinuria is present. The original MDRD equation for estimated GFR is not valid for patients less than 18 years of age. Additional information may be found at [email or web address]. 56 Note: Persistent reduction for 3 months or more in an eGFR <60 mL/min/1.73 m2 defines CKD. Patients with eGFR values >/=60 mL/min/1.73 m2 may also have CKD if evidence of persistent proteinuria is present. The original MDRD equation for estimated GFR is not valid for patients less than 18 years of age. Additional information may be found at [email or web address]. 57 Note: Persistent reduction for 3 months or more in an eGFR <60 mL/min/1.73 m2 defines CKD. Patients with eGFR values >/=60 mL/min/1.73 m2 may also have CKD if evidence of persistent proteinuria is present. The original MDRD equation for estimated GFR is not valid for patients less than 18 years of age. Additional information may be found at [email or web address]. 58 0 - 0.5 ng/mL: No evidence of myocardial injury 0.6 - 1.4 ng/mL: Mild elevation, suggesting possible myocardial injury > 1.4 ng/mL: Consistent with myocardial injury 59 0 - 0.5 ng/mL: No evidence of myocardial injury 0.6 - 1.4 ng/mL: Mild elevation, suggesting possible myocardial injury > 1.4 ng/mL: Consistent with myocardial injury 60 0 - 0.5 ng/mL: No evidence of myocardial injury 0.6 - 1.4 ng/mL: Mild elevation, suggesting possible myocardial injury > 1.4 ng/mL: Consistent with myocardial injury 61 Note: Persistent reduction for 3 months or more in an eGFR <60 mL/min/1.73 m2 defines CKD. Patients with eGFR values >/=60 mL/min/1.73 m2 may also have CKD if evidence of persistent proteinuria is present. The original MDRD equation for estimated GFR is not valid for patients less than 18 years of age. Additional information may be found at [email or web address]. 62 A1c value between 5.7% and 6.4% is considered at increased risk for diabetes. A1c value greater than 6.5 % is considered essentially diagnostic for Type II diabetes. Current guidelines recommend a treatment goal of <7% for diabetic patients. This method will measure glycosylated hemoglobin variants, HbS, HbG, HbH, HbWayne, HbC, HbE, etc. Other hemoglobin- opathies may give incorrect results with this test. 63 Note: Persistent reduction for 3 months or [...] Inject/Drain Joint/Bursa Major W/O US Completed 03/04/2018 74770 Noninvasive Ear Or Pulse Oximetry For Oxygen Completed Saturation 10/29/2017 [id number] Mammogram Completed 10/29/2017 84105 Mammography Unilateral Completed 04/23/2017 Inject/Drain Joint/Bursa Major W/O US Completed 09/20/2015 98330 Bone Density Study, Single Photon Absorptiometry Completed 09/12/2015 69073 Pure Tone Hearing Test, Air Completed 10/04/2014 [id number] Diabetic Retinal Eye Exam Completed 09/06/2014 93743 Pure Tone Hearing Test, Air Completed 11/24/2013 13910 EKG Tracing & Interpretation Completed 08/10/2013 93367 Pure Tone-Air Condition Only Completed 06/07/2013 18979 Pure Tone-Air Condition Only Completed 08/11/2012 08013 Stress Test Completed 08/11/2012 82840 Myocardial Perfusion Imaging Tomographic (Spect) Completed Multiple Studies 06/18/2011 94352 EKG Tracing & Interpretation Completed 06/18/2011 39518 Pure Tone-Air Condition Only Completed 11/20/2010 80041 Destruction Of Benign Lesions Any Method 1-14 lesions Completed 05/17/2010 [id number] Colonoscopy Completed 07/05/2008 93435 Demo & Eval Of PT Utilization Of Aerosol Completed Nebulizer/Inhaler 10/21/1992 53187 Allergy Injection - Single Completed 09/23/1992 83280 Allergy Injection - Single Completed 09/02/1992 62302 Allergy Injection - Single Completed 08/12/1992 43600 Allergy Injection - Single Completed 07/22/1992 47740 Allergy Injection - Single Completed 07/01/1992 93356 Allergy Injection - Single Completed 06563 Colonoscopy Flexible Diagnostic Completed Encounters Type Date Location Provider Dx Diagnosis Office Visit 08/22/2018 Orthopedic Kartik Woods M.D. M17.12 Unilateral 8:00a [facility] primary osteoarthritis, left knee Office Visit 04/23/2017 Orthopedic Taiwo Pride, S43.421A Sprain of right 11:15a [facility] AT rotator cuff Carlos hanna, initial encounter Office Visit 01/23/2011 [facility] 388.72 Otalgia Referred 9:30a [facility] AT Carlos Armas M.D. Pain 723.9 Cervical Region Musculoskeletal Disorders & Symptoms Unspec Plan of Treatment Future Appointment(s):10/31/2018 9:45 am - Kartik Woods M.D. at [facility]09/27/2018 9:30 am - CELSA Linares at [facility]09/15/2018 10:30 am - Dimitri Raman MD at [facility]09/27/2018 9:30 am - Kartik Woods M.D. at [facility]10/17 10:00 am - Dimitri Raman MD at [facility]
[2018-09-27] MEDS ORDERED: celeCOXIB CAP* 100 MG ONE (06:00)
[2018-09-27] MEDS ORDERED: Gabapentin CAP(*) 300 MG PO ONE (06:00)
[2018-09-27] MEDS ORDERED: Famotidine TAB* 20 MG PO ONE (06:00)
[2018-09-27] MEDS ORDERED: Gabapentin CAP(*) 300 MG ONE (06:00)
[2018-09-27] MEDS ORDERED: Acetaminophen TAB* 325 MG PO ONE (06:00)
[2018-09-27] MEDS ORDERED: celeCOXIB CAP* 200 MG PO ONE (06:00)
[2018-09-27] MEDS ORDERED: Dexamethasone IV* 4 MG/ML 1 ML (4 MG) ONE (06:00)
[2018-09-27] MEDS ORDERED: Lactated Ringers 1000 ML Bag* 1,000 ML IV SCH (06:00)
[2018-09-27] MEDS ORDERED: Dexamethasone IV* 4 MG/ML 1 ML (4 MG) IV SLOW PU ONE (06:00)
[2018-09-27] MEDS ORDERED: Famotidine TAB* 20 MG ONE (06:01)
[2018-09-27] MEDS ORDERED: Buffered Lidocaine 1% SYRIN* 1 ML/SYRINGE INTRADERM ONE (06:01)
[2018-09-27] MEDS ORDERED: ceFAZolin 2 GM PREMIX in ORs 2 GM/50 ML BAG IVPB ONE (06:01)
[2018-09-27] MEDS ORDERED: Acetaminophen TAB* 325 MG ONE (06:01)
[2018-09-27] MEDS ORDERED: Midazolam* 1 MG/ML 2 ML VIAL (2 MG) ONE (07:01)
[2018-09-27] MEDS ORDERED: Lidocaine 1%* 5 ML VIAL ONE (07:04)
[2018-09-27] MEDS ORDERED: ROPIVACAINE 5 MG/ML 30 ML BTL (0.5%) ONE (07:04)
[2018-09-27] MEDS ORDERED: Bupivacaine 0.5% W/EPI SDV* 30 ML VIAL ONE (07:07)
[2018-09-27] MEDS ORDERED: fentaNYL* 50 MCG/ML 2 ML VIAL (100 MCG VIAL) IV PRN (07:23)
[2018-09-27] MEDS ORDERED: HYDROmorphone INJ1* 1 MG/ML SYRINGE IV PRN (07:23)
[2018-09-27] MEDS ORDERED: Ketorolac INJ* 30 MG/ML 1 ML VIAL IV PRN (07:23)
[2018-09-27] MEDS ORDERED: oxyCODONE/Acetamin 5/325 MG* TAB PO PRN (07:23)
[2018-09-27] MEDS ORDERED: DiMENhydriNATE IV* 50 MG/ML VIAL IV PUSH PRN (07:23)
[2018-09-27] MEDS ORDERED: Acetaminophen IV 1GM/100ML * 1,000 MG/100 ML VIAL IVPB ONE (07:23)
[2018-09-27] MEDS ORDERED: Naloxone* 0.4 MG/ML 1 ML VIAL IV PRN (07:23)
[2018-09-27] MEDS ORDERED: Ondansetron INJ* 2 MG/ML VIAL IV PRN ×2 (07:23→10:48)
[2018-09-27] MEDS ORDERED: Propofol* 10 MG/ML 20 ML BTL ONE ×2 (07:42→09:16)
[2018-09-27] MEDS ORDERED: fentaNYL* 50 MCG/ML 2 ML VIAL (100 MCG VIAL) ONE (07:42)
[2018-09-27] MEDS ORDERED: KETAMINE HCL* 50 MG/ML 10 ML VIAL ONE (08:22)
[2018-09-27] MEDS ORDERED: Cyclobenzaprine TAB* 10 MG PO PRN (10:48)
[2018-09-27] MEDS ORDERED: oxyCODONE TAB* 5 MG TAB PO PRN (10:48)
[2018-09-27] MEDS ORDERED: Docusate CAP* 100 MG PO PRN (10:48)
[2018-09-27] MEDS ORDERED: diPHENhydraMINE IV* 50 MG/ML 1 ml VIAL (BENADRYL) IV PRN (10:48)
[2018-09-27] MEDS ORDERED: Bisacodyl SUPP* 10 MG SUPP PR PRN (10:48)
[2018-09-27] MEDS ORDERED: Magnesium Hydroxide LIQ* 30 ML UDC PO PRN (10:48)
[2018-09-27] MEDS ORDERED: Morphine 4 MG/ML VIAL (1 ml) 4 MG/ML VIAL IV PRN (10:48)
[2018-09-27] MEDS ORDERED: Ondansetron ODT TAB* 4 MG PO PRN (10:48)
[2018-09-27] MEDS ORDERED: diPHENhydraMINE PO* 25 MG PO PRN (10:48)
[2018-09-27] MEDS ORDERED: Albuterol HFA INHALER* 8 gm MDI INH PRN (10:54)
[2018-09-27] MEDS ORDERED: Albuterol 2.5 MG/3 ML NEB.SOL* (0.083%) INH PRN (10:54)
[2018-09-27] MEDS: Lactated Ringers 1000 ML Bag* 1,000 ML IV SCH ×2 (11:50→22:30)
--- NOTE | 2018-09-27 13:18 | OP ---
CC: Carlos Hernandez * DATE OF OPERATION: 09/27/18 - ROOM #350 DATE OF : 38 SURGICAL CARE: Left knee. SURGEON: Kartik Woods MD ASSISTANTS: CELSA Linares, marketing support assistant, and PATRIZIA Ortiz. ANESTHESIOLOGIST: Dr. Rebolledo. ANESTHESIA: Left femoral canal block and spinal with IV sedation. PRE-OP DIAGNOSIS: Severe arthritis of the left knee, patellar arthritis mainly. POST-OP DIAGNOSIS: Severe arthritis of the left knee, patellar arthritis mainly. OPERATIVE PROCEDURE: Left total knee replacement. 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 COMPONENTS UTILIZED: Antione Persona knee was utilized. All components were cemented to size 4 femur and the prosthesis was also posteriorly stabilized. Size 4 femur and size C tibia, size 10 articular surface and a 29 patella. COMPLICATIONS: There were no complications. DRAINS: There were no drains. ESTIMATED BLOOD LOSS: 200 mL. REPLACEMENT: Crystalloid fluids. CONDITION: Stable to recovery room. DESCRIPTION OF PROCEDURE: The patient was brought to the operating room and placed on the operating room table in the supine position. The spinal anesthetic was administered in the sitting position and the femoral block anesthesia on the left side had been administered previously by Dr. Rebolledo. A Rivera catheter was inserted. The patient was then carefully positioned on the operating room table. The left proximal thigh was wrapped with a tourniquet and the left leg was given a preliminary chlorhexidine prep and then a formal ChloraPrep. After prepping, draping, and sealing off, we did our universal protocol time-out confirming Margarita Vancseth and the plan for left total knee replacement. We all agreed and we proceeded. The tourniquet was utilized during the cleanup and cementing phase of the case, but not for the majority of the case. The surgical care was done with the left hip and knee acutely flexed with the left foot on a padded footpiece. The skin incision went from 2 fingerbreadths proximal to the superior pole of the patella to the medial aspect of the tibial tubercle. Skin and subcu divided. Hemostasis was checked and achieved throughout the case utilizing electrocautery. At the level of the prepatellar bursa, medial flap was elevated and the knee was entered medial parapatellar dividing the quad tendon at the junction of the rectus femoris tendon and the vastus medialis tendon, staying as close to vastus medialis muscle as possible. On the tibia, we went down to bone 2 cm medial to the tibial tubercle and then up to the joint line. The knee had clear gold synovial fluid, it was quite abundant. The patella was completely eburnated. It was worn with grooving, same with the lateral trochlea, opposite patella, osteophytes there and there was a large lateral osteophyte on the patella. The patella was made so that it could be everted. The peripatellar synovectomy was completed, this included the fat pad. The lateral meniscus was carefully excised. The intercondylar osteophytes which were small were removed. The ACL and PCL were uplifted from their femoral origins. The tibia was made so that it could be subluxated for forward from under the femur. The distal anterior femur was exposed subperiosteally for referencing and measuring. The proximal tibial cut was made first. Our goal here was to have a tibial surface that would be perpendicular to the long axis of the tibia, have a slight posterior slope removing 3 to 5 mm from either side of the tibia. After this cut was completed, then the femoral intramedullary drill was utilized. The femoral canal was suctioned to discourage embolization. The distal femoral cutting guide was applied on 1 regarding some flexion contracture and 6 degrees of valgus. The distal femoral cut was completed. The extension gap was satisfactory. The femur was measured for a size 4. The anterior, posterior and chamfering cuts were then completed. We then finished removal of the posterior horn lateral meniscus, the PCL, posterior horn medial meniscus, we worked very carefully posteriorly with careful hemostasis. The medial meniscus was removed entirely with careful preservation of the MCL. The flexion gap was good at 90 degrees with a 10-mm block. The femur was completed with the intercondylar cutout. The femur canal was cleaned x6 with saline suctioned and then bone plug inserted. The tibia was completed for a size C and the knee was articulated and extended with the C tibia, 10 articular surface, a 4 femur with full knee extension, stable ligaments in extension, and stable ligaments in 90 degrees of flexion. The patella was cut flat. The patella had some deficiency of bone laterally, but two-thirds of the 29 prosthesis were supported by the medial and mid bone. Three drill holes were made, these were undercut with the curette and there was no need for a lateral release and patella had nice gliding. The leg was exsanguinated, the tourniquet was elevated to 275. The final components were all open. The knee was cleaned in extension with 2 L of pulse saline irrigation with careful irrigation. The knee was then flexed, retractors were put into position, and all surfaces were cleaned with the pulse saline and then dried with lap sponges. The cement was mixed and the components were cemented into position, patella followed by tibia, followed by femur. Each component was impacted. Excess cement was removed. The knee was articulated and extended several times during the hardening to see that all excess cement was removed. Once all the cement was hardened and the tourniquet was deflated, we checked posteriorly for bleeding points and loose cement. The knee was disarticulated and all excess cement was removed. The pericapsular tissues were infiltrated with Marcaine with epinephrine posterior, posteromedially, medially, and laterally. Careful closure was then started. The quad mechanism closed with interrupted #1 Vicryl in a [id number]-dkepl fashion down to the medial retinaculum and from there distally, we used 0 Vicryl. We decided that drains were not necessary. We irrigated several times during closure with saline. The deep fascia closed with interrupted 0 Vicryl, superficial subcu closed with 3-0 Vicryl. Skin was washed and dried and after lashay were applied and then dressed with Betadine-soaked release, sterile gauze, sterile Webril, cryotherapy cuff, ABD pads, and Norbert bandage all loosely applied. The patient was returned to the recovery room in stable and satisfactory condition having tolerated the procedure very well. Postoperative x-ray AP and lateral views of the knee showed very satisfactory alignment of the right total knee replacement on both views. Procedure was well tolerated. [id number]/[facility] #: [id number] GARY
[2018-09-27] MEDS: Acetaminophen TAB* 325 MG PO SCH ×2 (14:15→21:54)
[2018-09-27] MEDS: ceFAZolin 1 GM ADVAN(*) 1 GM in NS 0.9% 50 ML* 50 ML IVPB SCH (16:21)
--- NOTE | 2018-09-27 17:45 | CONS ---
[facility] CONSULTATION: DATE OF CONSULT: 09/27/18 PROVIDER: Leonel Kearney NP. ATTENDING PHYSICIAN: Dr. Woods. CONSULTING PHYSICIAN: Dr. Aleyda Bolaños (dictated by Leonel Kearney NP). REASON FOR CONSULT: Comanagement of chronic medical conditions. HISTORY OF PRESENT ILLNESS: Ms. Ewing is a 77-year-old female with a past medical history significant for hypertension, hyperlipidemia, GERD, asthma, osteoarthritis, history of colon cancer, who presented to [facility] for an elective left total knee arthroplasty with Dr. Woods. Please see dictated H and P from Dr. Woods for complete details. In brief, the patient had ongoing pain in her left knee and failed conservative measures and therefore opted for a left total knee arthroplasty with Dr. Woods. In the postoperative period, the patient has no complaints. Due to her history of hypertension and asthma, we were asked to see in consult to help comanage with the patient's care during her hospitalization. PAST MEDICAL HISTORY: Significant for: 1. Hypertension. 2. Hyperlipidemia. 3. GERD. 4. Asthma. 5. Osteoarthritis. 6. History of colon cancer. PAST SURGICAL HISTORY: 1. Right knee replacement in 1999. 2. Rotator cuff. 3. Hernia repair. 4. Eye surgery. 5. Cataract removal. 6. Colon polyps removed. 7. Foot surgery. 8. Hysterectomy. HOME MEDICATIONS: 1. Diltiazem 120 mg p.o. daily. 2. Bisoprolol fumarate 5 mg p.o. daily. 3. Atorvastatin 10 mg p.o. daily. 4. Singulair 10 mg p.o. q.a.m. 5. Mometasone furoate nasal sprays, 2 sprays both nares q.a.m. 6. Fluticasone/salmeterol 250/50 one puff b.i.d. 7. Vitamin D 1.2 mg p.o. weekly. 8. Valsartan/hydrochlorothiazide 80/12.5 one tablet p.o. daily. 9. Aspirin 81 mg p.o. daily. 10. Albuterol 2 puffs q.6 hours as needed for shortness of breath. 11. Vitamin D 50,000 units once weekly. ALLERGIES: Allergy to PENICILLIN, SULFA, and ENVIRONMENTAL ALLERGIES. FAMILY HISTORY: Father with a history of hypertension. No reported history of diabetes. Grandfather with a history of unknown type cancer. SOCIAL HISTORY: The patient denies tobacco, alcohol or illicit drug use. She reports she has never smoked. She is . She lives with her . Surrogate decision maker in the event she is unable to make her own decisions is her . She is a full code. REVIEW OF SYSTEMS: The patient denies any fevers or chills, unintended weight loss, chest pain, edema, cough hemoptysis, or shortness of breath. No nausea, vomiting, diarrhea, abdominal pain, gross hematuria, or dysuria. Denies any focal weakness or sensory loss. Denies any visual complaints, dysphagia, arthralgias, myalgias, rashes, lesions or open sores. Denies any depression or anxiety. PHYSICAL EXAM: General: At this time, Ms. Ewing is a 77-year-old female. She is resting comfortably in her chair in her room. Vital Signs: Temperature 97.3, heart rate 56, respirations 16, O2 saturation 97%, blood pressure 122/52. HEENT: Head is atraumatic, normocephalic. Eyes: EOMs are intact. Sclerae anicteric and not pale. Oral mucosa appears to be moist. Neck is supple. Lungs are clear to auscultation bilaterally. No wheezes, rales, or rhonchi. Cardiac: S1, S2. Regular rate and rhythm. No murmurs, rubs, or gallops. Abdomen is soft and nontender. Bowel sounds are present x4. Extremities: She can move all 4 extremities. There is no clubbing or cyanosis. She does have a dressing that is dry and intact to her left knee. Pedal pulses are +2 bilaterally. Skin: She has dry and intact dressing to left knee. Neurologic: The patient is alert and oriented x3. Speech is clear. Thought process is intact. There are no gross focal deficits. Psych: The patient is alert and oriented x3, calm and cooperative. DIAGNOSTIC STUDIES/LAB DATA: WBCs are 5.8, RBCs 4.12, hemoglobin 12.6, hematocrit is 39, platelet count 192. INR was 0.97. APTT was 30.7. Sodium 140 , potassium 4.0, chloride 104, carbon dioxide was 28, anion gap was 8, BUN was 27, creatinine 0.82, glucose was 98, calcium 9.4. Total bilirubin was 0.50. ASTs were 15, ALTs were 8, alkaline phosphatase was 56. Urine was yellow, clear , pH of 6.0, specific gravity 1.014, urine protein was negative, ketones were negative, blood was 1+ and negative. Nitrites, bilirubin, urobilinogen were all negative. Urine leukocyte esterase was trace, wbc's and rbc's were trace. Squamous epithelial cells were present. Bacteria was absent and glucose was negative. ASSESSMENT AND PLAN: Ms. Ewing is a 77-year-old female, who presented to [facility] for elective left total knee arthroplasty with Dr. Woods. We were asked to comanage her chronic medical conditions. Our recommendations are as follows: 1. Status post left total knee arthroplasty. Management per orthopedics, PT/ OT per Orthopedics, bowel regimen per Orthopedics, DVT prophylaxis per Orthopedics. 2. Hypertension. I will continue her Zetia and diltiazem as previously prescribed. I would hold her valsartan/hydrochlorothiazide and resume at discharge. 3. Asthma. I will continue on Advair b.i.d. and ProAir as needed for shortness of breath. 4. Hyperlipidemia. She is to continue on atorvastatin as previously prescribed. 5. FEN. She can have a regular diet. 6. Code status. She is a full code. 7. DVT prophylaxis: Per orthopedics. TIME SPENT: Time spent on this consultation was 45 minutes, greater than half that time was spent at the bedside reviewing events leading thus far to her hospitalization, performing my physical exam, and reviewing my plan of care. I have discussed with my attending physician, Dr. Aleyda Bolaños and she is in agreement with my plan. LEONEL KEARNEY, HEALTH AND SAFETY INSPECTOR [id number]/[facility] #: [id number] GARY
[2018-09-27] MEDS: Mometasone/Formoter 200/5 MDI INH SCH (19:52)
[2018-09-28] MEDS: ceFAZolin 1 GM ADVAN(*) 1 GM in NS 0.9% 50 ML* 50 ML IVPB SCH ×2 (00:12→07:42)
[2018-09-28 05:40] LABS: Hematocrit 32 % (35-47); Hemoglobin 10.8 g/dL (12.0-16.0); Platelet Count 145 10^3/uL (150-450)
[2018-09-28 06:01] LABS: BUN/Creatinine Ratio 25.4 (8-20); Calcium 9.1 mg/dL (8.6-10.3); EGFR African American 96.3 (>60); EGFR Non-African American 79.6 (>60); Potassium 3.7 mmol/L (3.5-5.0)
[2018-09-28] MEDS: Acetaminophen TAB* 325 MG PO SCH ×2 (06:07→14:36)
[2018-09-28] MEDS: traMADol TAB* 50 MG PO PRN ×2 (07:51→16:01)
[2018-09-28] MEDS: Mometasone/Formoter 200/5 MDI INH SCH (08:03)
--- NOTE | 2018-09-28 08:47 | PN ---
Progress Note - Progress Note Date of Service: 09/28/18 Note: POD #1. VSStable X-ray left knee after surgery all satisfactory. H/H 10.8 and 32%. Nursing report is good. Patient awake, alert, cooperative and breathing easily. Dressing right knee is dry. Right DP pluse is 2 plus. Moving left ankle up and down actively. No foot swelling. Imp : Stable. Acute blood loss anemia. Plans: Up with walker, TKR rehab protocol. Drinking and incentive spirometer.
[2018-09-28] MEDS ORDERED: Diltiazem CD CAP* 120 MG PO SCH (09:00)
[2018-09-28] MEDS ORDERED: Bisoprolol TAB* 5 MG PO SCH (09:00)
[2018-09-28] MEDS ORDERED: Fluticasone NASAL SPRAY 50MCG* 16 gm SPRAY BTL BOTH NARES SCH (09:00)
[2018-09-28] MEDS ORDERED: Aspirin TAB* 325 MG PO SCH (09:00)
[2018-09-28] MEDS ORDERED: Atorvastatin* 10 MG TAB PO SCH (09:00)
[2018-09-28] MEDS ORDERED: Montelukast Sodium TAB* 10 MG PO SCH (09:00)
[2018-09-28] MEDS: Lactated Ringers 1000 ML Bag* 1,000 ML IV SCH (09:00)
[2018-09-28 15:41] VITALS: BP 144/59
--- NOTE | 2018-09-28 15:45 | DS ---
Orthopedic Discharge Summary - Discharge Summary Discharge to home 09/28 in stable condition with VNS Date of Admission:09/27/18 Date of Discharge: 09/28/18 Date of Surgery: 09/27/18 Attending Orthopedic Provider: Dr Woods Pre-operative Diagnosis: left knee arthritis Operative Procedure: left total knee replacement Condition of Patient: stable History: WILMA GARAY is a 77 year old F with years of increasingly severe left knee pain. Patient has failed conservative management and has elected to undergo a left total knee replacement Hospital Course: WILMA was admitted to [facility] on 09/27/18. Patient underwent a left total knee replacement without complication followed by a brief recovery in PACU and transfer to the Short Stay Surgical Unit in stable condition. Our hospitalist service, physical therapy and occupational therapy also participated in this patients care. Post-op day 1: patient was alert and in no acute distress. Dressing was changed, incision was clean, dry and intact. Operative extremity dorsiflexion and plantarflexion intact, sensation intact to light touch distally, DP2+. Patient was deemed to be medically and orthopedically stable for discharge home. Patient strongly desired DC to home. Physical therapy goals were met. Home Medications Medication Instructions Recorded Confirmed Type Fluticasone-Salmeterol 250-50* 1 puff PO BID 08/17/12 09/27/18 History [Advair Diskus 250-50*] Montelukast Sodium TAB* [Singulair 10 mg PO QAM 08/17/12 09/27/18 History 10 MG TAB*] Atorvastatin* [Lipitor 10 MG*] 10 mg PO QAM 11/29/13 09/27/18 History Albuterol 2.5MG/3ML (0.083%)* 2.5 mg INH Q6H PRN 08/29/15 09/14/18 History [Ventolin 2.5 MG/3 ML NEB.SUYAPA*] Diltiazem XR EXTEND Releas(NF) 120 mg PO QAM 08/29/15 09/27/18 History [Cartia XR (NF)] Albuterol inh POWDER (NF) [Proair 2 puff IN Q6H PRN 04/22/17 09/14/18 History Respiclick] Acetaminophen [Acetaminophen Extra 500 - 1,000 mg PO Q6H PRN 09/14/18 09/14/18 History Strength] Bisoprolol Fumarate 5 mg PO QAM 09/14/18 09/27/18 History Monetasone Furoate Nasal [place] 2 spray BOTH NARES QAM 09/14/18 09/27/18 History Valsartan/HCTZ 80/12.5(NF) [Diovan 1 tab PO QAM 09/14/18 09/27/18 History Hct 80/12.5(NF)] Vitamin D2 1.2 Mg 1.2 mg PO WEEKLY 09/14/18 09/27/18 History Acetaminophen TAB* [Tylenol TAB*] 975 mg PO Q8HR tab 09/28/18 Rx Aspir-81 81 mg PO QAM #0 09/28/18 09/27/18 Rx Aspirin TAB* [Aspirin 325 MG TAB*] 325 mg PO DAILY #30 tab 09/28/18 Rx Docusate CAP* [Colace Cap*] 100 mg PO BID PRN #90 cap 09/28/18 Rx traMADol TAB* [Ultram*] 50 mg PO Q6H PRN #56 tab MDD 8 09/28/18 Rx Discharge Instructions following Orthopedic Surgery: Activity: * Weight Bearing as tolerated * Continue physical therapy and occupational therapy exercises as shown * home physical therapy Wound care: * OK to shower on post-op day 3, no bathing, swimming, or submerging wound. * Use gentle soap, pat dry. Cover with gauze, MACIEL wrap or tape. * Visiting home nurse to do wound checks. * Home nurse to remove lashay in 10-14 days Call Orthopedic office for: * Increased drainage * Redness * Increased pain * Fever Go to ER with shortness of breath or chest pain. Diet: * Regular diet * Increase fluids and fiber to prevent constipation. * Continue to use stool softeners, call office if no bowel motion within 48 hours. Medications See Home Medication List in your packet for medications that you should take after discharge. DVT Prophylaxis: Aspirin Dosin mg once a day for 30 days. hold aspirin 81 mg tab Pain Control: tramadol 50 mg 1-2 tabs every 6 hours as needed for pain, max 8 per day. hold for sedation and wean off as soon as pain allows Antibiotics are required prior to any dental work. Follow up with Dr Woods Within 4 weeks, sooner with concerns, call for appointment Please call our office with any questions or concerns ([phone]) RX to [facility]
== END 2018-09-28 18:15 | disposition home health service (06) | DRG 470 ==
LOC: AA 05:33 → SSU 10:48
PROVIDERS: ADMIT Orthopaedic Surgery; ATTEND Orthopaedic Surgery
PROC: 0SRD0J9 Replacement of Left Knee Joint with Synthetic Substitute, Cemented, Open Approach (ICD-10-PCS; principal; 2018-09-27 07:30)
DX: M17.12 Unilateral primary osteoarthritis, left knee (principal); D62 Acute posthemorrhagic anemia; J44.9 Chronic obstructive pulmonary disease, unspecified; R51 Headache; M25.762 Osteophyte, left knee; E78.5 Hyperlipidemia, unspecified; J45.909 Unspecified asthma, uncomplicated; I10 Essential (primary) hypertension; K21.9 Gastro-esophageal reflux disease without esophagitis; Z86.010 Personal history of colon polyps; Z96.651 Presence of right artificial knee joint; Z98.41 Cataract extraction status, right eye; Z98.42 Cataract extraction status, left eye; Z82.49 Family history of ischemic heart disease and other diseases of the circulatory system; Z80.9 Family history of malignant neoplasm, unspecified; Z88.0 Allergy status to penicillin; Z88.2 Allergy status to sulfonamides; Z79.51 Long term (current) use of inhaled steroids; Z85.038 Personal history of other malignant neoplasm of large intestine; Z90.710 Acquired absence of both cervix and uterus
CPT/HCPCS: 36415; 80048; 85014; 85018; 85049; A9270-GY; C1776; G8978-GP-CJ; G8979-GP-CI; G8987-GO-CJ; G8988-GO-CI; G8989-GO-CJ; J0690; J1100; J2250; J2704; J2795; J3010

== ENCOUNTER → 2018-10-13 16:16 | Emergency (ER) | payer MEDICARE, OTHER ==
[~2018-10-13 16:16] MED LIST changes: -Buffered Lidocaine 1% SYRIN* 1 ML/SYRINGE INTRADERM ONE; +Clindamycin CAP* 150 MG PO ONE; -Tranexamic Acid 1,000 MG in NS 0.9% 50 ML* (outpatient use) IV SCH
[2018-10-13 17:01] LABS: ABS Basophils 0.1 10^3/ul (0-0.2); ABS Eosinophils 0.6 10^3/ul (0-0.6); ABS Lymphocytes 1.5 10^3/ul (1.0-4.8); ABS Monocytes 0.7 10^3/ul (0-0.8); Eosinophil % 8.2 %; Hematocrit 36 % (35-47); Hemoglobin 11.9 g/dL (12.0-16.0); Lymphocyte % 21.9 %; Mean Corpuscular HGB Conc 33 g/dL (31-36); Mean Corpuscular Hemoglobin 31 pg (27-31); Mean Corpuscular Volume 94 fL (80-97); Mean Platelet Volume 7.1 fL (7.4-10.4); Nucleated Red Blood Cells % 0.1; Platelet Count 262 10^3/uL (150-450); Red Blood Count 3.82 10^6 /uL (3.70-4.87); Red Cell Distribution Width 15 % (10.5-15); White Blood Count 6.8 10^3/uL (3.5-10.8)
[2018-10-13 17:27] LABS: Albumin/Globulin Ratio 1.3 (1-3); BUN/Creatinine Ratio 35.1 (8-20); Calcium 9.4 mg/dL (8.6-10.3); EGFR African American 87.7 (>60); EGFR Non-African American 72.5 (>60); Globulin 3.1 g/dL (2-4); Potassium 3.5 mmol/L (3.5-5.0); Total Bilirubin 0.7 mg/dL (0.2-1.0); Total Protein 7.1 g/dL (6.4-8.9)
--- NOTE | 2018-10-13 17:31 | ED ---
Lower Extremity - HPI Summary HPI Summary: 77 yo female presents to [facility] ED accompanied by her with LEFT knee ? infection. She tells me that she had a left total knee replacement on 09/[address] Woods. Since that time she has had some redness around the staple sites. Today she had a home health nurse remove the lashay and pt noticed some yellow/ green drainage from the staple sites. She had physical therapy today as well and PT told her that the knee "did not look good". Pt called her Orthopedic's office and was advised to come to the ED for further eval. She has had a RIGHT total knee in the past without complication. She has good range of motion, including flexion to her left knee without significant pain. She is ambulatory with a walker. Denies fever, vomiting, or hx of MRSA. - History of Current Complaint Chief Complaint: EDExtremityLower Stated Complaint: LT KNEE INFECTION PER PT Time Seen by Provider: 10/13/18 17:30 Hx Obtained From: Patient, Family/[employer] Severity Initially: Mild Severity Currently: Mild Pain Intensity: 3 Pain Scale Used: 0-10 Numeric - Allergies/Home Medications Allergies/Adverse Reactions: Allergies Allergy/AdvReac Type Severity Reaction Status Date / Time Penicillins AdvReac Severe body rash Verified 10/13/18 16:17 Sulfa (Sulfonamide AdvReac Severe Nausea And Verified 10/13/18 16:17 Antibiotics) Vomiting ENVIRONMENTAL/HAYFEVER Allergy Intermediate Congestion, Uncoded 10/13/18 16:17 SNEEZING PMH/Surg Hx/FS Hx/Imm Hx Cardiovascular History: Reports: Hx Hypertension - CONTROL WITH MEDICATION, Other Cardiovascular Problems/Disorders - cholesterol Respiratory History: Reports: Hx Asthma - USES INHALER, Other Respiratory Problems/Disorders - DIFFICULTY BREATHING IF LAYING FLAT GI History: Reports: Hx Hiatal Hernia - REPAIRED IN 2006 Musculoskeletal History: Reports: Hx Arthritis - BILATERAL FINGERS, LEGS Sensory History: Reports: Hx Contacts or Glasses - GLASSES Denies: Hx Hearing Aid Opthamlomology History: Reports: Hx Contacts or Glasses - GLASSES Neurological History: Reports: Hx Headaches - SINUS HEADACHES - Cancer History Hx Chemotherapy: No - Surgical History Surgery Procedure, Year, and Place: 1971 CYST REMOVED FROM RIGHT BREAST, [facility]. 1984 TOTAL HYSTERECTOMY, [facility]. 1987 POLYP REMOVED FROM COLON, [facility]. 1997 RIGHT EYE SURGERY, [place]. 2000 RIGHT KNEE TOTAL REPLACEMENT, [facility]. 2002 CATARACT EXTRACTION WITH IOL LENS IMPLANT RIGHT EYE, [facility]. 2003 TORN LEFT ROTATOR CUFF REPAIR AND PARTIAL REMOVAL OF COLLAR BONE, [facility]. 2006 HIATAL HERNIA REPAIR, [facility]. 2009 RIGHT FOOT SURGERY, [facility]. 06/2013 Left cataract surgery. 11/2017- right inguinal hernia [facility] Hx Anesthesia Reactions: No Infectious Disease History: No Infectious Disease History: Reports: Hx Shingles - 1986- under breast; Denies: Traveled Outside the [place] in Last 30 Days - Family History Known Family History: Positive: None - Social History Alcohol Use: None Substance Use Type: Reports: None Smoking Status (MU): Never Smoked Tobacco Review of Systems Constitutional: Negative Cardiovascular: Negative Respiratory: Negative Gastrointestinal: Negative Musculoskeletal: Negative Skin: Other - Left knee incision ?infection Neurological: Negative Psychological: Normal All Other Systems Reviewed And Are Negative: Yes Physical Exam - Summary Physical Exam Summary: GENERAL: NAD. WDWN. No pain distress. SKIN: LEFT KNEE: Anterior aspect with ~9.0cm vertical surgical incision. Mild yellow/green discharge from previous staple sites with mild surrounding erythema and slight warmth. Mildly TTP. No wound dehiscence appreciated. CHEST: No accessory muscle use. Breathing comfortably and in no distress. CV: . Pulses intact popliteal, PT, and DP. Cap refill <2seconds MSK: LEFT KNEE: Moderate edema about knee. Flexion to ~100deg and extension to ~ 10deg. NEURO: Alert. Sensations intact and symmetric B/L LEs PSYCH: Age appropriate behavior. Triage Information Reviewed: Yes Vital Signs On Initial Exam: Initial Vitals Temp Pulse Resp BP Pulse Ox 97.8 F 75 18 154/95 97 10/13/18 16:17 10/13/18 16:17 10/13/18 16:17 10/13/18 16:17 10/13/18 16:17 Vital Signs Reviewed: Yes Diagnostics - Vital Signs Vital Signs Temp Pulse Resp BP Pulse Ox 10/13/18 16:17 97.8 F 75 18 154/95 97 - Laboratory Lab Results: Lab Results 10/13/18 10/13/18 Range/Units 16:42 16:42 WBC 6.8 (3.5-10.8) 10^3/uL RBC 3.82 (3.70-4.87) 10^6 /uL Hgb 11.9 L (12.0-16.0) g/dL Hct 36 (35-47) % MCV 94 (80-97) fL MCH 31 (27-31) pg MCHC 33 (31-36) g/dL RDW 15 (10.5-15) % Plt Count 262 (150-450) 10^3/uL MPV 7.1 L (7.4-10.4) fL Neut % (Auto) 59.0 % Lymph % (Auto) 21.9 % Leon % (Auto) 10.0 % Eos % (Auto) 8.2 % Baso % (Auto) 0.9 % Absolute Neuts (auto) 4.0 (1.5-7.7) 10^3/ul Absolute Lymphs (auto) 1.5 (1.0-4.8) 10^3/ul Absolute Monos (auto) 0.7 (0-0.8) 10^3/ul Absolute Eos (auto) 0.6 (0-0.6) 10^3/ul Absolute Basos (auto) 0.1 (0-0.2) 10^3/ul Absolute Nucleated RBC 0.0 10^3/ul Nucleated RBC % 0.1 Sodium 140 (135-145) mmol/L Potassium 3.5 (3.5-5.0) mmol/L Chloride 105 (101-111) mmol/L Carbon Dioxide 26 (22-32) mmol/L Anion Gap 9 (2-11) mmol/L BUN 27 H (6-24) mg/dL Creatinine 0.77 (0.51-0.95) mg/dL Est GFR ( Amer) 87.7 (>60) Est GFR (Non-Af Amer) 72.5 (>60) BUN/Creatinine Ratio 35.1 H (8-20) Glucose 120 H (70-100) mg/dL Calcium 9.4 (8.6-10.3) mg/dL Total Bilirubin 0.70 (0.2-1.0) mg/dL AST 15 (13-39) U/L ALT 7 (7-52) U/L Alkaline Phosphatase 56 (34-104) U/L Total Protein 7.1 (6.4-8.9) g/dL Albumin 4.0 (3.2-5.2) g/dL Globulin 3.1 (2-4) g/dL Albumin/Globulin Ratio 1.3 (1-3) Result Diagrams: 10/13/18 16:42 10/13/18 16:42 Lab Statement: Any lab studies that have been ordered have been reviewed, and results considered in the medical decision making process. Lower Extremity Course/Dx - Course Course Of Treatment: Pt is afebrile with excellent ROM to left knee without dehiscence. No leukocytosis. It appears she has a superficial surgical incision infection, likely due to the lashay. Given her recent surgery, I consulted Dr. Lyons of Orthopedics who saw the pt and agreed with the above assessment and does not believe this represents a joint infection at this time. Will place pt on po Clindamycin as an outpatient and have her f/u with Dr. Woods of Orthopedics early next week for a recheck. She was given strict return precautions that if she develops a fever, increased pain/swelling/draiange, or decreased ROM to the knee to return to the ED immediately. Pt and voiced understanding and agree with the plan. - Diagnoses Provider Diagnoses: Superficial incisional surgical site infection - Physician Notifications Discussed Care Of Patient With: Dr. Lyons Time Discussed With Above Provider: 17:44 Instructed by Provider To: MD Will See In ED - 1830 Dr. Lyons evberny'd pt and recommends po anbx and outpatient f/u with Chuck early next week Discharge - Sign-Out/Discharge Documenting (check all that apply): Patient Departure Patient Received Moderate/Deep Sedation with Procedure: No - Discharge Plan Condition: Stable Disposition: HOME Prescriptions: Clindamycin HCl 300 mg PO TID #21 capsule Patient Education Materials: Clindamycin (By mouth), Wound Infection (ED) Referrals: Dimitri Raman MD [Primary Care Provider] - Kartik Woods MD [Medical Doctor] - 4 Days Additional Instructions: If you develop a fever, shortness of breath, chest pain, new or worsening symptoms - please call your PCP or go to the ED immediately. Your blood pressure was high at todays visit. Please see your primary provider within 4 weeks for recheck and re-evaluation. 1) Please take your antibiotic as directed and keep the steri-stripes on the wound 2) Please call Dr. Woods's office tomorrow to schedule an appointment for a recheck early next week. 3) If you develop a fever or worsening pain or drainage/warmth to the knee - please return to the ER immediately - Billing Disposition and Condition Condition: STABLE Disposition: Home
[2018-10-13 18:48] VITALS: BP 171/85
--- NOTE | 2018-10-13 19:44 | CONS ---
CC: Dr. Lyons CONSULTATION REPORT: DATE OF CONSULTATION: 10/13/18 CHIEF COMPLAINT: Redness and swelling of the left knee status post left knee replacement. HISTORY OF PRESENT ILLNESS: Margarita is a 77-year-old female who had a left total knee replacement do ne by Dr. Woods on 09/27/18. The visiting nurse removed her lashay today and noticed some significa nt erythema and little bits of purulent drainage. The visiting nurse spoke to Dr. Woods's office and he recommended referral to the emergency department. The patient was seen by the PA, who did some [employer] work. The white count was negative. The patient is afebrile. She denies any pain with range o f motion of her knee. She has been doing physical therapy at home and has gained already more than 9 0 degrees of flexion and has full extension. PHYSICAL EXAM: On physical exam, she is a healthy-appearing, very pleasant woman in minimal distress at rest. She does not appear ill. On exam of her left knee, she has erythema surrounding the incis ion, but it is nontender. There are tiny areas of purulent drainage where the lashay were, but I am not able to express any drainage. She has flexion of her knee from 0 to 100 degrees without pain. She does not seem to have a septic arthritis of her left knee. IMPRESSION: Superficial wound infection, status post left knee replacement. PLAN: The patient will be prescribed oral antibiotic and follow up with Dr. Woods next week. She wa s prescribed clindamycin as she is allergic to PENICILLIN and had a significant reaction with a full body rash. We will see her back in followup again in Dr. Woods's office in approximately 1 week or s ooner if her symptoms worsen at all. [id number]/[facility] #: [id number]
== END | disposition home or self-care (01) ==
LOC: ED 16:16
DX: T81.40XA Infection following a procedure, unspecified, initial encounter (principal); Z96.652 Presence of left artificial knee joint; Z88.0 Allergy status to penicillin; Z88.2 Allergy status to sulfonamides; I10 Essential (primary) hypertension
CPT/HCPCS: 36415; 80053; 83605; 85025; 87040; 99282; A9270-GY